=== PATIENT | female | born 1950 | race Caucasian/White ===

== ENCOUNTER → 2018-06-20 | Outpatient (CLI) | payer MEDICARE ==
--- NOTE | 2018-06-20 15:26 | Diagnostic Imaging Report ---
Thyroid ultrasound History: Thyrotoxicosis Comparison: None Findings: The thyroid appears heterogeneous with normal vascular flow. The right lobe measures 2.1 x 0.7 x 0.7 cm. The left lobe measures 1.5 x 0.5 x 0.8 cm. The isthmus measures 0.2 cm. Right Lobe: No cystic mass or discrete solid nodule identified. Left Lobe: No cystic mass or discrete solid nodule identified. Isthmus: No cystic mass or discrete solid nodule identified. Lymph Nodes: No cervical lymph nodes are identified. IMPRESSION: Heterogeneous appearance of the thyroid, a non-specific finding in the absence of hyperemia, but could be seen in thyroiditis. No evidence of focal nodule. Signed by: Dr. Eric Villarreal MD on 06/20/2018 3:23 PM
== END ==
LOC: US 13:52
PROVIDERS: ATTEND Internal Medicine
DX: E05.40 Thyrotoxicosis factitia without thyrotoxic crisis or storm (principal)
CPT/HCPCS: 76536

== ENCOUNTER → 2018-07-09 | Outpatient (CLI) | payer MEDICARE ==
[~2018-07-09] MED LIST: GADOBENATE DIMEGLUMINE 1 ML IV ONE; SODIUM CHLORIDE 0.9% 50ML 50 ML ONE
[2018-07-09 16:39] LABS: CREATININE, SERUM 1.11 mg/dL (0.57-1.11)
--- NOTE | 2018-07-11 15:32 | Diagnostic Imaging Report ---
MRI BRAIN WOW HISTORY: Abnormal thyroid function test COMPARISON: None. TECHNIQUE: Multiplanar, multisequence MRI of the brain (including diffusion-weighted imaging) and pituitary gland was performed before and after the administration of intravenous contrast. Dynamic coronal T1 weighted images through the sella were obtained. 9 mL of intravenous MultiHance were administered. DISCUSSION: Scalp/bone marrow: Unremarkable. Brain sulci: Appropriate for patient's age. Ventricles: Normal in size and configuration. No hydrocephalus. Extra-axial spaces: No masses or fluid collections. Sellar/Suprasellar region: The sella is preserved. The pituitary gland is normal in size and morphology. The posterior pituitary T1 bright spot is preserved. The pituitary stalk is not deviated. The optic chiasm is preserved. The cavernous sinuses are normal in size and enhance symmetrically. Meckel's caves are clear. The cavernous internal carotid artery flow voids are preserved. Parenchyma: Scattered T2/FLAIR hyperintense foci throughout the supratentorial white matter are likely chronic microvascular ischemic changes. Otherwise, no mass, hemorrhage, or acute vascular insults. Vessels: Normal flow voids in major arteries and veins. Craniocervical junction: Unremarkable. Incidental findings: There is nonspecific mild T2/FLAIR hyperintense mucosal thickening in the right maxillary sinus and right ethmoid air cells. IMPRESSION: 1. No sellar/suprasellar abnormalities. 2. No acute intracranial abnormalities. 3. Mild supratentorial chronic microvascular ischemic change. Signed by: Dr. Rylan Encarnacion M.D. on 07/11/2018 3:29 PM
== END ==
LOC: MRI 16:03
PROVIDERS: ATTEND Internal Medicine
DX: R94.6 Abnormal results of thyroid function studies (principal)
CPT/HCPCS: 36415; 70553; 82565; 84520

== ENCOUNTER 2020-04-08 11:17 | Emergency (ER) | payer MEDICARE ==
[~2020-04-08] VITALS: Ht 160 cm; Wt 51.7 kg
[2020-04-08] MEDS ORDERED: HYDROCODONE/APAP 7.5MG-325MG 1 EA TAB PO ONE (11:45)
--- NOTE | 2020-04-08 12:09 | Diagnostic Imaging Report ---
EXAMINATION: WRIST COMPLETE LEFT INDICATION: Trauma COMPARISON: None FINDINGS: Acute mildly displaced, mildly impacted fractures of the distal radius and ulna with intra-articular extension of fracture line. The ulnar fracture line extends proximally to the distal ulnar diaphysis. Associated overlying soft tissue swelling. IMPRESSION: Acute mildly displaced and impacted fractures of the distal radius and ulna with intra-articular extension and overlying soft tissue swelling. Signed by: Chele Valenzuela MD on 04/08/2020 12:05 PM
--- OUTSIDE RECORDS SUMMARY | 2020-04-08 12:23 | XMS REPORT | Clinical Summary ---
Author Author [facility] Organization [facility] Address Unknown Phone Unavailable Care Team Providers Care Risk Tech Name Role Phone Elmer Giles MD PCP Allergies Comments Active Allergy Reactions Severity Noted Date Don"t remember Sulfa (Sulfonamide 11/13/2017 Antibiotics) Medications End Date Status Medication Sig Dispensed Refills Start Date Active amIODarone (PACERONE) 200 Take 200 mg 0 MG tablet by mouth daily. Active levothyroxine (SYNTHROID, Take 75 mcg 0 LEVOXYL) 75 mcg tablet by mouth every morning. Active rivaroxaban (XARELTO) 20 Take 20 mg by 0 mg tablet mouth daily. Active atorvastatin (LIPITOR) 20 Take 20 mg by 0 MG tablet mouth daily. Default OP ins Active OLANZapine (ZYPREXA) 2.5 Take 5 mg by 0 MG tablet mouth nightly. Active LORAZepam (ATIVAN) 0.5 MG Take 0.5 mg 0 tablet by mouth daily. Active traZODone (DESYREL) 150 Take 150 mg 0 MG tablet by mouth nightly. Active Problems Not on file Social History Date Tobacco Use Types Packs/Day Years Used Current Every Day Smoker Smokeless Tobacco: Current User Drinks/Week oz/Week Comments Alcohol Use No Sex Assigned at Date Recorded Not on file Industry Job Start Date Occupation Not on file Not on file Not on file Travel End Travel History Travel Start No recent travel history available. 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
--- OUTSIDE RECORDS SUMMARY | 2020-04-08 12:23 | XMS REPORT | Continuity of Care Document ---
Author Author [facility] t Organization [facility] Address [address] [place] [address] Phone Unavailable Care Team Providers Care Music Manager Name Role Phone Poornima Giles MD PCP Papito TEJEDA Attphys Unavailable Neymar ANDREW Attphys Unavailable Payers Payer Name Policy Type Policy Number Effective Date Expiration Date S ource Problems This patient has no known problems. Allergies, Adverse Reactions, Alerts Allergy Name Allergy Type Status Severity Reaction(s) Onset Date Inacti ve Date Treating Clinician Comments Source Sulfa (Sulfonamide Antibiotics) Propensity to adverse reactions to drug Active 2017-11-13 00:00:00 Don"t remember H anita Morales Sulfa (Sulfonamide Antibiotics) DA Active U 2016-01-30 00 :00:00 [facility] Social History Social Habit Start Date Stop Date Quantity Comments Source Sex Assigned At Anthony Morales Alcohol intake 2018-05-26 00:00:00 2018-05-26 00:00:00 Current non-drinker of alcohol (finding) Tom Morales Smoking Status Start Date Stop Date Source Current every day smoker 2018-05-26 00:00:00 Anthony Morales Medications Ordered Medication Name Filled Medication Name Start Date Stop Da te Current Medication? Ordering Clinician Indication Dosage Frequency Signature (SIG) Comments Components Source amIODarone (PACERONE) 200 MG tablet 2018-04-16 10:46:54 Yes 200mg QD Take 200 mg by mouth daily. [facility] ths[facility] levothyroxine (SYNTHROID, LEVOXYL) 75 mcg tablet 2018-04-16 10:46:54 Yes 75ug QD Take 75 mcg by mouth every morning. [place] [facility] rivaroxaban (XARELTO) 20 mg tablet 2018-04-16 10:46:54 Yes 20mg QD Take 20 mg by mouth daily. [place] [facility] atorvastatin (LIPITOR) 20 MG tablet 2018-04-16 10:46:54 Yes 20mg QD Take 20 mg by mouth daily. Default OP ins Anthony stomeek [facility] OLANZapine (ZYPREXA) 2.5 MG tablet 2018-04-16 10:46:54 Yes 5mg QD Take 5 mg by mouth nightly. [place] [facility] LORAZepam (ATIVAN) 0.5 MG tablet 2018-04-16 10:46:54 Yes .5mg QD Take 0.5 mg by mouth daily. [place] [facility] traZODone (DESYREL) 150 MG tablet 2018-04-16 10:46:54 Yes 150mg QD Take 150 mg by mouth nightly. [place] [facility] mathis Procedures This patient has no known procedures. Plan of Care Planned Activity Planned Date Details Comments Source Future Scheduled Test 2020-05-19 00:00:00 INFLUENZA VACCINE [code = INFLUENZA VACCINE] [facility] Scheduled Test 2013 00:00:00 65+ PNEUMOCOCCAL V ACCINE (1 of 2 - PCV13) [code = 65+ PNEUMOCOCCAL VACCINE (1 of 2 - PCV13)] [facility] Future Scheduled Test 1998 00:00:00 BREAST CANCER SCRE ENING [code = BREAST CANCER SCREENING] [facility] Future Scheduled Test 1998 00:00:00 COLONOSCOPY SCREEN ING [code = COLONOSCOPY SCREENING] [facility] Future Scheduled Test 1998 00:00:00 SHINGLES VACCINES (#1) [code = SHINGLES VACCINES (#1)] [facility] Results Test Description Test Time Test Comments Results Result Comments Source WRIST COMPLETE LEFT 2020-04-08 12:04:00 [place] [address] Patient Name: HAYDE MCKEON MR #: [id number] : 1950 Age/Sex: 69/F Req #: [id number] [facility] Physician: Ordered by: EDIN TEJEDA MD Report #: [id number] Location: ER Room/Bed: Procedure: [id number] DX/WRIST COMPLETE LEFT Exam Date: 04/08/20 Exam Time: 1130 REPORT STATUS: Signed EXAMINATION: WRIST COMPLETE LEFT INDICATION: Trauma COMPARISON: None FINDINGS: Acute mildly displaced, mildly impacted fractures of the distal radius and ulna with intra-articular extension of fracture line. The ulnar fracture line extends proximally to the distal ulnar diaphysis. Associated overlying soft tissue swelling. IMPRESSION: Acute mildly displaced and impacted fractures of the distal radius and ulna with intra-articular extension and overlying soft tissue swelling. Signed by: Marcel Crespo MD on 04/08/2020 12:05 PM Dictated By: MARCEL CRESPO MD 120 Transcribed By: DONNA on 04/08/20 1205 COPY TO: EDIN TEJEDA MD COAGULATION TIME ACTIVATED 2018-11-03 11:20:00 Test Item COAGULATION TIME ACTIVATED (test code = ACT) 365 seconds 62.8-88.0 H COAGULATION TIME [id number] 11:20:00* Test Item Value Reference Range Interpretation Comments COAGULATION TIME ACTIVATED (test code = ACT) 363 seconds 62.8-88.0 H COAGULATION TIME [id number] 11:20:00* Test Item Value Reference Range Interpretation Comments COAGULATION TIME ACTIVATED (test code = ACT) 376 seconds 62.8-88.0 H COAGULATION TIME [id number] 11:20:00* Test Item Value Reference Range Interpretation Comments COAGULATION TIME ACTIVATED (test code = ACT) 410 seconds 62.8-88.0 H CBC W/AUTO [id number] 17:51:00* Test Item Value Reference Range Interpretation Comments WHITE BLOOD CELL (test code = WBC) 6.0 K/mm3 4.5-12.5 N RED BLOOD CELL (test code = RBC) 5.02 mill/mm3 3.7-5.2 N HEMOGLOBIN (test code = HGB) 13.3 gram/dL 11.5-15.5 N HEMATOCRIT (test code = HCT) 44.6 % 36.0-46.0 N MEAN CELL VOLUME (test code = MCV) 88.8 fL 80-98 N MEAN CELL HGB (test code = MCH) 26.5 picogram 27.0-33.0 L MEAN CELL HGB CONCETRATION (test code = MCHC) 29.8 gram/dL 33.0-36. 0 L RED CELL DISTRIBUTION WIDTH (test code = RDW) 15.4 % 11.6-16. 2 N RED CELL DISTRIBUTION WIDTH SD (test code = RDW-SD) 49.4 fL 37 .0-51.0 N PLATELET COUNT (test code = PLT) 148 K/mm3 150-450 L MEAN PLATELET VOLUME (test code = MPV) 11.2 fL 6.7-11.0 H NEUTROPHIL % (test code = NT%) 68.3 % 39.0-69.0 N IMMATURE GRANULOCYTE % (test code = IG%) 0.3 % 0.0-5.0 N LYMPHOCYTE % (test code = LY%) 21.6 % 25.0-55.0 L MONOCYTE % (test code = MO%) 8.0 % 0.0-10.0 N EOSINOPHIL % (test code = EO%) 1.5 % 0.0-5.0 N BASOPHIL % (test code = BA%) 0.3 % 0.0-1.0 N NUCLEATED RBC % (test code = NRBC%) 0.0 % 0-0 N NEUTROPHIL # (test code = NT#) 4.12 K/mm3 1.8-7.7 N IMMATURE GRANULOCYTE # (test code = IG#) 0.02 x10 3/uL 0-0.03 N LYMPHOCYTE # (test code = LY#) 1.30 K/mm3 1.0-5.0 N MONOCYTE # (test code = MO#) 0.48 K/mm3 0-0.8 N EOSINOPHIL # (test code = EO#) 0.09 K/mm3 0.0-0.5 N BASOPHIL # (test code = BA#) 0.02 K/mm3 0.0-0.2 N NUCLEATED RBC # (test code = NRBC#) 0.00 K/mm3 0.0-0.1 N MANUAL DIFF REQUIRED (test code = MDIFF) NO, ONLY SCAN NEEDED DIFFERENTIAL [id number] 17:51:00* Test Item Value Reference Range Interpretation Comments STAIN ACCEPTABILITY (test code = STN ACCEPTABLE) STAIN ACCEPTABLE POIKILOCYTOSIS (test code = POIK) 1+ PLATELET ESTIMATE (test code = PLTEST) DECREASED PLATELET MORPHOLOGY (test code = PLTMORPH) NORMAL BASIC METABOLIC [id number] 17:40:00* Test Item Value Reference Range Interpretation Comments SODIUM (test code = NA) 142 mmol/L 136-145 N POTASSIUM (test code = K) 3.5 mmol/L 3.5-5.1 N CHLORIDE (test code = CL) 107.0 mmol/L 98-107 N CARBON DIOXIDE (test code = CO2) 32.0 mmol/L 21-32 N ANION GAP (test code = GAP) 6.5 10-20 L GLUCOSE (test code = GLU) 80 mg/dL 74-106 N BLOOD UREA NITROGEN (test code = BUN) 14 mg/dL 7-18 N GLOMERULAR FILTRATION RATE (test code = GFR) 49 mL/min >=60 Estimated GFR by using Modified MDRD formula.Chronic kidney disease is defined as either kidney damageor GFR <60 mL/min/1.73 m2 for >3 months. CREATININE (test code = CREAT) 1.10 mg/dL 0.55-1.02 H Note change in reference range due to change in reagent. BUN/CREATININE RATIO (test code = BUN/CREA) 12.4 10-20 N CALCIUM (test code = CA) 9.0 mg/dL 8.5-10.1 N PROTHROMBIN [id number] 17:27:00* Test Item Value Reference Range Interpretation Comments PROTHROMBIN TIME PATIENT (test code = PTP) 15.0 seconds 9.0-14.0 H INTERNATIONAL NORMAL RATIO (test code = INR) 1.3 0.8-1.2 H The therapeutic range for oral anticoagulant therapy formost indications is an international normalized ratio (INR)of between 2.0 and 3.0. The recommended therapeutic INRrange for various clinical situations is listed below: Clinical Situation INR range Pulmonary e mbolism treatment (2.0-3.0)Venous thrombosis treatmentVenous thrombosis prophylaxis (high risk surgery)Prevention of systemic embolism from: Acute myocardial infarction Valvular heart disease Atrial fibrillation Mechanical prosthetic heart valves (2.5-3.5) THROMBOPLASTIN TIME [id number] 17:27:00* Test Item Value Reference Range Interpretation Comments THROMBOPLASTIN TIME PARTIAL (test code = PTT) 43.0 seconds 25.0-36. 5 H CBC W/AUTO [id number] 17:23:00* Test Item Value Reference Range Interpretation Comments WHITE BLOOD CELL (test code = WBC) 6.0 K/mm3 4.5-12.5 N RED BLOOD CELL (test code = RBC) 5.02 mill/mm3 3.7-5.2 N HEMOGLOBIN (test code = HGB) 13.3 gram/dL 11.5-15.5 N HEMATOCRIT (test code = HCT) 44.6 % 36.0-46.0 N MEAN CELL VOLUME (test code = MCV) 88.8 fL 80-98 N MEAN CELL HGB (test code = MCH) 26.5 picogram 27.0-33.0 L MEAN CELL HGB CONCETRATION (test code = MCHC) 29.8 gram/dL 33.0-36. 0 L RED CELL DISTRIBUTION WIDTH (test code = RDW) 15.4 % 11.6-16. 2 N RED CELL DISTRIBUTION WIDTH SD (test code = RDW-SD) 49.4 fL 37 .0-51.0 N PLATELET COUNT (test code = PLT) 148 K/mm3 150-450 L MEAN PLATELET VOLUME (test code = MPV) 11.2 fL 6.7-11.0 H NEUTROPHIL % (test code = NT%) 68.3 % 39.0-69.0 N IMMATURE GRANULOCYTE % (test code = IG%) 0.3 % 0.0-5.0 N LYMPHOCYTE % (test code = LY%) 21.6 % 25.0-55.0 L MONOCYTE % (test code = MO%) 8.0 % 0.0-10.0 N EOSINOPHIL % (test code = EO%) 1.5 % 0.0-5.0 N BASOPHIL % (test code = BA%) 0.3 % 0.0-1.0 N NUCLEATED RBC % (test code = NRBC%) 0.0 % 0-0 N NEUTROPHIL # (test code = NT#) 4.12 K/mm3 1.8-7.7 N IMMATURE GRANULOCYTE # (test code = IG#) 0.02 x10 3/uL 0-0.03 N LYMPHOCYTE # (test code = LY#) 1.30 K/mm3 1.0-5.0 N MONOCYTE # (test code = MO#) 0.48 K/mm3 0-0.8 N EOSINOPHIL # (test code = EO#) 0.09 K/mm3 0.0-0.5 N BASOPHIL # (test code = BA#) 0.02 K/mm3 0.0-0.2 N NUCLEATED RBC # (test code = NRBC#) 0.00 K/mm3 0.0-0.1 N MANUAL DIFF REQUIRED (test code = MDIFF) NO, ONLY SCAN NEEDED DIFFERENTIAL [id number] 17:23:00* Test Item Value Reference Range Interpretation Comments STAIN ACCEPTABILITY (test code = STN ACCEPTABLE) CABOT RINGS (test code = CAB) MORPHOLOGY COMMENT (test code = MOC) PLATELET ESTIMATE (test code = PLTEST) PLATELET MORPHOLOGY (test code = PLTMORPH) CBC W/AUTO [id number] 17:23:00* Test Item Value Reference Range Interpretation Comments WHITE BLOOD CELL (test code = WBC) 6.0 K/mm3 4.5-12.5 N RED BLOOD CELL (test code = RBC) 5.02 mill/mm3 3.7-5.2 N HEMOGLOBIN (test code = HGB) 13.3 gram/dL 11.5-15.5 N HEMATOCRIT (test code = HCT) 44.6 % 36.0-46.0 N MEAN CELL VOLUME (test code = MCV) 88.8 fL 80-98 N MEAN CELL HGB (test code = MCH) 26.5 picogram 27.0-33.0 L MEAN CELL HGB CONCETRATION (test code = MCHC) 29.8 gram/dL 33.0-36. 0 L RED CELL DISTRIBUTION WIDTH (test code = RDW) 15.4 % 11.6-16. 2 N RED CELL DISTRIBUTION WIDTH SD (test code = RDW-SD) 49.4 fL 37 .0-51.0 N PLATELET COUNT (test code = PLT) 148 K/mm3 150-450 L MEAN PLATELET VOLUME (test code = MPV) 11.2 fL 6.7-11.0 H NEUTROPHIL % (test code = NT%) 68.3 % 39.0-69.0 N IMMATURE GRANULOCYTE % (test code = IG%) 0.3 % 0.0-5.0 N LYMPHOCYTE % (test code = LY%) 21.6 % 25.0-55.0 L MONOCYTE % (test code = MO%) 8.0 % 0.0-10.0 N EOSINOPHIL % (test code = EO%) 1.5 % 0.0-5.0 N BASOPHIL % (test code = BA%) 0.3 % 0.0-1.0 N NUCLEATED RBC % (test code = NRBC%) 0.0 % 0-0 N NEUTROPHIL # (test code = NT#) 4.12 K/mm3 1.8-7.7 N IMMATURE GRANULOCYTE # (test code = IG#) 0.02 x10 3/uL 0-0.03 N LYMPHOCYTE # (test code = LY#) 1.30 K/mm3 1.0-5.0 N MONOCYTE # (test code = MO#) 0.48 K/mm3 0-0.8 N EOSINOPHIL # (test code = EO#) 0.09 K/mm3 0.0-0.5 N BASOPHIL # (test code = BA#) 0.02 K/mm3 0.0-0.2 N NUCLEATED RBC # (test code = NRBC#) 0.00 K/mm3 0.0-0.1 N MANUAL DIFF REQUIRED (test code = MDIFF) NO, ONLY SCAN NEEDED DIFFERENTIAL [id number] 17:23:00* Test Item Value Reference Range Interpretation Comments STAIN ACCEPTABILITY (test code = STN ACCEPTABLE) CABOT RINGS (test code = CAB) MORPHOLOGY COMMENT (test code = MOC) PLATELET ESTIMATE (test code = PLTEST) PLATELET MORPHOLOGY (test code = PLTMORPH) CBC W/AUTO [id number] 17:23:00* Test Item Value Reference Range Interpretation Comments WHITE BLOOD CELL (test code = WBC) 6.0 K/mm3 4.5-12.5 N RED BLOOD CELL (test code = RBC) 5.02 mill/mm3 3.7-5.2 N HEMOGLOBIN (test code = HGB) 13.3 gram/dL 11.5-15.5 N HEMATOCRIT (test code = HCT) 44.6 % 36.0-46.0 N MEAN CELL VOLUME (test code = MCV) 88.8 fL 80-98 N MEAN CELL HGB (test code = MCH) 26.5 picogram 27.0-33.0 L MEAN CELL HGB CONCETRATION (test code = MCHC) 29.8 gram/dL 33.0-36. 0 L RED CELL DISTRIBUTION WIDTH (test code = RDW) 15.4 % 11.6-16. 2 N RED CELL DISTRIBUTION WIDTH SD (test code = RDW-SD) 49.4 fL 37 .0-51.0 N PLATELET COUNT (test code = PLT) 148 K/mm3 150-450 L MEAN PLATELET VOLUME (test code = MPV) 11.2 fL 6.7-11.0 H NEUTROPHIL % (test code = NT%) 68.3 % 39.0-69.0 N IMMATURE GRANULOCYTE % (test code = IG%) 0.3 % 0.0-5.0 N LYMPHOCYTE % (test code = LY%) 21.6 % 25.0-55.0 L MONOCYTE % (test code = MO%) 8.0 % 0.0-10.0 N EOSINOPHIL % (test code = EO%) 1.5 % 0.0-5.0 N BASOPHIL % (test code = BA%) 0.3 % 0.0-1.0 N NUCLEATED RBC % (test code = NRBC%) 0.0 % 0-0 N NEUTROPHIL # (test code = NT#) 4.12 K/mm3 1.8-7.7 N IMMATURE GRANULOCYTE # (test code = IG#) 0.02 x10 3/uL 0-0.03 N LYMPHOCYTE # (test code = LY#) 1.30 K/mm3 1.0-5.0 N MONOCYTE # (test code = MO#) 0.48 K/mm3 0-0.8 N EOSINOPHIL # (test code = EO#) 0.09 K/mm3 0.0-0.5 N BASOPHIL # (test code = BA#) 0.02 K/mm3 0.0-0.2 N NUCLEATED RBC # (test code = NRBC#) 0.00 K/mm3 0.0-0.1 N MANUAL DIFF REQUIRED (test code = MDIFF) NO, ONLY SCAN NEEDED DIFFERENTIAL [id number] 17:23:00* Test Item Value Reference Range Interpretation Comments STAIN ACCEPTABILITY (test code = STN ACCEPTABLE) MORPHOLOGY COMMENT (test code = MOC) PLATELET ESTIMATE (test code = PLTEST) PLATELET MORPHOLOGY (test code = PLTMORPH) CBC W/AUTO [id number] 17:23:00* Test Item Value Reference Range Interpretation Comments WHITE BLOOD CELL (test code = WBC) 6.0 K/mm3 4.5-12.5 N RED BLOOD CELL (test code = RBC) 5.02 mill/mm3 3.7-5.2 N HEMOGLOBIN (test code = HGB) 13.3 gram/dL 11.5-15.5 N HEMATOCRIT (test code = HCT) 44.6 % 36.0-46.0 N MEAN CELL VOLUME (test code = MCV) 88.8 fL 80-98 N MEAN CELL HGB (test code = MCH) 26.5 picogram 27.0-33.0 L MEAN CELL HGB CONCETRATION (test code = MCHC) 29.8 gram/dL 33.0-36. 0 L RED CELL DISTRIBUTION WIDTH (test code = RDW) 15.4 % 11.6-16. 2 N RED CELL DISTRIBUTION WIDTH SD (test code = RDW-SD) 49.4 fL 37 .0-51.0 N PLATELET COUNT (test code = PLT) 148 K/mm3 150-450 L MEAN PLATELET VOLUME (test code = MPV) 11.2 fL 6.7-11.0 H NEUTROPHIL % (test code = NT%) 68.3 % 39.0-69.0 N IMMATURE GRANULOCYTE % (test code = IG%) 0.3 % 0.0-5.0 N LYMPHOCYTE % (test code = LY%) 21.6 % 25.0-55.0 L MONOCYTE % (test code = MO%) 8.0 % 0.0-10.0 N EOSINOPHIL % (test code = EO%) 1.5 % 0.0-5.0 N BASOPHIL % (test code = BA%) 0.3 % 0.0-1.0 N NUCLEATED RBC % (test code = NRBC%) 0.0 % 0-0 N NEUTROPHIL # (test code = NT#) 4.12 K/mm3 1.8-7.7 N IMMATURE GRANULOCYTE # (test code = IG#) 0.02 x10 3/uL 0-0.03 N LYMPHOCYTE # (test code = LY#) 1.30 K/mm3 1.0-5.0 N MONOCYTE # (test code = MO#) 0.48 K/mm3 0-0.8 N EOSINOPHIL # (test code = EO#) 0.09 K/mm3 0.0-0.5 N BASOPHIL # (test code = BA#) 0.02 K/mm3 0.0-0.2 N NUCLEATED RBC # (test code = NRBC#) 0.00 K/mm3 0.0-0.1 N MANUAL DIFF REQUIRED (test code = MDIFF) NO, ONLY SCAN NEEDED DIFFERENTIAL [id number] 17:23:00* Test Item Value Reference Range Interpretation Comments STAIN ACCEPTABILITY (test code = STN ACCEPTABLE) CABOT RINGS (test code = CAB) MORPHOLOGY COMMENT (test code = MOC) PLATELET ESTIMATE (test code = PLTEST) PLATELET MORPHOLOGY (test code = PLTMORPH) CBC W/AUTO [id number] 17:14:00* Test Item Value Reference Range Interpretation Comments WHITE BLOOD CELL (test code = WBC) K/mm3 4.5-12.5 RED BLOOD CELL (test code = RBC) mill/mm3 3.7-5.2 HEMOGLOBIN (test code = HGB) 13.3 gram/dL 11.5-15.5 N HEMATOCRIT (test code = HCT) 44.6 % 36.0-46.0 N MEAN CELL VOLUME (test code = MCV) fL 80-98 MEAN CELL HGB (test code = MCH) picogram 27.0-33.0 MEAN CELL HGB CONCETRATION (test code = MCHC) gram/dL 33.0-36. 0 RED CELL DISTRIBUTION WIDTH (test code = RDW) % 11.6-16. 2 RED CELL DISTRIBUTION WIDTH SD (test code = RDW-SD) fL 37 .0-51.0 PLATELET COUNT (test code = PLT) K/mm3 150-450 MEAN PLATELET VOLUME (test code = MPV) fL 6.7-11.0 NEUTROPHIL % (test code = NT%) % 39.0-69.0 IMMATURE GRANULOCYTE % (test code = IG%) % 0.0-5.0 LYMPHOCYTE % (test code = LY%) % 25.0-55.0 MONOCYTE % (test code = MO%) % 0.0-10.0 EOSINOPHIL % (test code = EO%) % 0.0-5.0 BASOPHIL % (test code = BA%) % 0.0-1.0 NEUTROPHIL # (test code = NT#) K/mm3 1.8-7.7 LYMPHOCYTE # (test code = LY#) K/mm3 1.0-5.0 MONOCYTE # (test code = MO#) K/mm3 0-0.8 EOSINOPHIL # (test code = EO#) K/mm3 0.0-0.5 BASOPHIL # (test code = BA#) K/mm3 0.0-0.2 - CT HEART W CN [id number] 16:15:00 Name: HAYDE MCKEON [facility] : 1950 Age/S: 68 / F [address] [facility] Unit #: [id number] Loc: [place] [address] Phys: Collin Aceves MD Acct: [id number] Dis Date: Status: REG CLI PHONE #: [phone] Exam Date: 10/28/2018 1151 FAX #: [phone] Reason: TYPLICAL EXAMS: CPT CODE: [id number] CT HEART W CN ART/GRAFTS [id number] REASON FOR EXAM: TYPLICAL EXAM ORDER DATE: 10/28/2018 11:19 AM Ordering M.D.: Collin Castellon MD PROCEDURE: - CT HEART W CN ART/GRAFTS COMPARISON: FINDINGS: Cardiac gated axial images of the heart were obtained with IV contrast. Dose modulation, iterative reconstruction, and/or weight based adjustment of the MA/KV was utilized to reduce the radiation dose to as low as reasonably achievable. Reconstructed 3- D angiogram of the pulmonary veins as well as intraluminal vessel analysis were also provided for interpretation The left atrium is minimally enlarged The right inferior pulmonary vein measured 1.8 x 2.4 cm The right superior pulmonary vein measured 2 x 2.2 cm The left inferior pulmonary vein measured 1.1 x 2.1 cm The left superior pulmonary vein measured 1.6 x 2 cm The left common pulmonary vein measured 1.8 x 3.6 cm IMPRESSION: Please see the included images for the orientation and dimension of the pulmonary veins Electronic ally Signed by Felisa Gooden on 10/28/2018 at 1615 Report ed and signed by: Smooth Gooden M.D. CC: Collin Aceves MD; Pedro Hendricks Technologist:Beverly Villarreal,RT(R),CT CTDI: DLP: Trnscb Date/Time: 10/28/2018 (5165) [email or web address] Orig Print D/T: S: 10/28/2018 (2833) CTDI: DLP: PAGE 1 Signed Report CREATININE W ESTIMATED [id number] 11:12:00* Test Item Value Reference Range Interpretation Comments BEDSIDE CREATININE (test code = CREATBED) mg/dL 0.7-1.3 N GLOMERULAR FILTRATION RATE POC (test code = GFRBED) 44 >6 0 LL CREATININE W ESTIMATED [id number] 11:12:00* Test Item Value Reference Range Interpretation Comments BEDSIDE CREATININE (test code = CREATBED) 1.21 mg/dL 0.7-1.3 N GLOMERULAR FILTRATION RATE POC (test code = GFRBED) 47 >6 0 LL Previously reported result: 44 Edited by: BRITTANIE on 10/28/18:363631 1112: GFRBED previously reported as: 44 *L MRI BRAIN [id number] 15:23:00 [place] [address] Patient Name: HAYDE MCKEON MR #: [id number] : 1950 Age/Sex: 67/F [facility] #: [id number] [facility] Physician: Ordered by: KAREN ANDREW M.D. Report #: [id number] Location: MRI Room/Bed: Procedure: [id number] MRI /MRI BRAIN WOW Exam Date: Exam Time: REPORT STATUS: Signed MRI BRAIN WOW HIST ORY: Abnormal thyroid function test COMPARISON: None. TECHNIQUE: Multiplanar, multisequence MRI of the brain (including diffusion-weighted imag ing) and pituitary gland was performed before and after the administration of intravenous contrast. Dynamic coronal T1 weighted images through the sella wer e obtained. 9 mL of intravenous MultiHance were administered. DISCUSSION: Scalp/bone marrow: Unremarkable. Brain sulci: Appropriate for patient's ag e. Ventricles: Normal in size and configuration. No hydrocephalus. Extra-ax ial spaces: No masses or fluid collections. Sellar/Suprasellar region: The sella is preserved. The pituitary gland is normal in size and morphology. The posterior pituitary T1 bright spot is preserved. The pituitary stalk is not deviated. The optic chiasm is preserved. The cavernous sinuses are n ormal in size and enhance symmetrically. Meckel's caves are clear. The cav ernous internal carotid artery flow voids are preserved. Parenchyma: Scat tered T2/FLAIR hyperintense foci throughout the supratentorial white matter ar e likely chronic microvascular ischemic changes. Otherwise, no mass, hemorrhag e, or acute vascular insults. Vessels: Normal flow voids in major arteries and veins. Craniocervical junction: Unremarkable. Incidental findings: There is nonspecific mild T2/FLAIR hyperintense mucosal thickening in the right max illary sinus and right ethmoid air cells. IMPRESSION: 1. No sellar/supra sellar abnormalities. 2. No acute intracranial abnormalities. 3. Mild supr atentorial chronic microvascular ischemic change. Signed by: Dr. Rylan Griffith M.D. on 07/11/2018 3:29 PM Dictated By: RYLAN BROWN MD Electr onically Signed By: RYLAN BROWN MD on 07/11/181528 Transcribed By: SLOANE Jimenez on 07/11/181528 COPY TO: KAREN ANDREW M.D. THYROID 2018-06-20 15:21:00 [place] [address] Patient Name: HAYDE MCKEON MR #: [id number] : 1950 Age/Sex: 67/F Req #: [id number] Adm Physician: Ordered by: KAREN ANDREW M.D. Report #: [id number] Location: US Room/Bed: Procedure: [id number] US/ US THYROID Exam Date: Exam Time: REPORT STATUS: Signed Thyroid ultrasound His tory: Thyrotoxicosis Comparison: None Findings: The thyroid appear s heterogeneous with normal vascular flow. The right lobe measures 2.1 x 0. 7 x 0.7 cm. The left lobe measures 1.5 x 0.5 x 0.8 cm. The isthmus measures 0.2 cm. Right Lobe: No cystic mass or discrete solid nodule identified. Left Lobe: No cystic mass or discrete solid nodule identified. Isthmus: No cystic mass or discrete solid nodule identified. Lymph Nodes: No cervical lymph nodes are identified. IMPRESSION: Heterogeneous appearance of the thyroid, a non-specific finding in the absence of hyperemia, but could be seen in thyroiditis. No evidence of focal nodule. Signed by: Dr. Eligio Francis MD on 06/20/2018 3:23 PM Dictated By: ELIGIO FRANCIS MD [id number] Transcribed By: DONNA on 06/20/18 1523 COPY TO: KAREN ANDREW M.D.
--- NOTE | 2020-04-08 12:26 | Diagnostic Imaging Report ---
CT BRAIN WO HISTORY: Fall COMPARISON: MRI brain 07/09/2018; report from head CT dated 12/15/2012 Technique: Noncontrast axial scans were obtained from skull base to the vertex. Coronal and sagittal reconstructions obtained from the axial data. One or more of the following dose reduction techniques were used: Automated exposure control, adjustment of the mA and/or kV according to patient size, and/or utilization of iterative reconstruction technique. DISCUSSION: Scalp/Skull: Unremarkable. Brain sulci: Mildly prominent. Ventricles: Compensatory dilatation. Extra-axial spaces: No masses or fluid collections. Carotid siphon calcifications are present. Parenchyma: Mild bilateral deep white matter hypodensity is likely chronic microvascular ischemic change. Otherwise, no masses, hemorrhage, or large vascular territory acute infarct. Dural sinuses: No abnormal densities. Sellar/Suprasellar region: Intact. Skull base: Intact. Incidental findings: Bilateral ocular lens replacement. IMPRESSION: 1. No acute intracranial abnormalities. 2. Mild supratentorial chronic microvascular ischemic change. Mild generalized cerebral volume loss. Signed by: Dr. Rylan Encarnacion M.D. on 04/08/2020 12:22 PM
--- OUTSIDE RECORDS SUMMARY | 2020-04-08 12:30 | XMS REPORT | Clinical Summary ---
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
--- OUTSIDE RECORDS SUMMARY | 2020-04-08 12:30 | XMS REPORT | Continuity of Care Document ---
Author Author [facility] t Organization [facility] Address 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 Tom robertson levothyroxine (SYNTHROID, LEVOXYL) 75 mcg tablet 2018-04-16 10:46:54 Yes 75ug QD Take 75 mcg by mouth every morning. Tom Morales rivaroxaban (XARELTO) 20 mg tablet 2018-04-16 10:46:54 Yes 20mg QD Take 20 mg by mouth daily. Santos Carmen atorvastatin (LIPITOR) 20 MG tablet 2018-04-16 10:46:54 Yes 20mg QD Take 20 mg by mouth daily. Default OP ins Anthony stomeek Morales OLANZapine (ZYPREXA) 2.5 MG tablet 2018-04-16 10:46:54 Yes 5mg QD Take 5 mg by mouth nightly. Santos Carmen LORAZepam (ATIVAN) 0.5 MG tablet 2018-04-16 10:46:54 Yes .5mg QD Take 0.5 mg by mouth daily. [place] Bea [address] traZODone (DESYREL) 150 MG tablet 2018-04-16 10:46:54 Yes 150mg QD Take 150 mg by mouth nightly. [place] Bea mathis Procedures This patient has no known procedures. Plan of Care Planned Activity Planned Date Details Comments Source Future Scheduled Test 2020-05-19 00:00:00 INFLUENZA VACCINE [code = INFLUENZA VACCINE] [facility] Scheduled Test 2013 00:00:00 65+ PNEUMOCOCCAL V ACCINE (1 of 2 - PCV13) [code = 65+ PNEUMOCOCCAL VACCINE (1 of 2 - PCV13)] [facility] Future Scheduled Test 1998 00:00:00 BREAST CANCER SCRE ENING [code = BREAST CANCER SCREENING] [facility] Future Scheduled Test 1998 00:00:00 COLONOSCOPY SCREEN ING [code = COLONOSCOPY SCREENING] [facility] Future Scheduled Test 1998 00:00:00 SHINGLES VACCINES (#1) [code = SHINGLES VACCINES (#1)] [facility] Results Test Description Test Time Test Comments Results Result Comments Source CT BRAIN WO 2020-04-08 12:19:00 [place] [address] Patient Name: HAYDE MCKEON MR #: [id number] : 1950 Age/Sex: 69/F Req #: [id number] [facility] Physician: Ordered by: EDIN TEJEDA MD Report #: [id number] Location: ER Room/Bed: Procedure: [id number] CT/CT BRAIN WO Exam Date: 04/08/20 Exam Time: 1210 REPORT STATUS: Signed CT BRAIN WO HISTORY: Fall COMPARISON: MRI brain 07/09/2018; report from head CT dated 12/15/2012 Technique: Noncontrast axial scans were obtained from skull base to the vertex. Coronal and sagittal reconstructions obtained from the axial data. One or more of the following dose reduction techniques were used: Automated exposure control, adjustment of the mA and/or kV according to patient size, and/or utilization of iterative reconstruction technique. DISCUSSION: Scalp/Skull: Unremarkable. Brain sulci: Mildly prominent. Ventricles: Compensatory dilatation. Extra-axial spaces: No masses or fluid collections. Carotid siphon calcifications are present. Parenchyma: Mild bilateral deep white matter hypodensity is likely chronic microvascular ischemic change. Otherwise, no masses, hemorrhage, or large vascular territory acute infarct. Dural sinuses: No abnormal densities. Sellar/Suprasellar region: Intact. Skull base: Intact. Incidental findings: Bilateral ocular lens replacement. IMPRESSION: 1. No acute intracranial abnormalities. 2. Mild supratentorial chronic microvascular ischemic change. Mild generalized cerebral volume loss. Signed by: Dr. Rylan Encarnacion M.D. on 04/08/2020 12:22 PM Dictated By: RYLAN ENCARNACION MD 1222 Transcribed By: DONNA on 04/08/20 1222 COPY TO: EDIN TEJEDA MD WRIST COMPLETE LEFT 2020-04-08 12:04:00 [facility] [address] [place] [address] Patient Name: HAYDE MCKEON MR #: [id number] : 1950 Age/Sex: 69/F Req #: [id number] Adm Physician: Ordered by: EDIN TEJEDA MD Report #: [id number] Location: ER Room/Bed: Procedure: [id number] DX/WRIST COMPLETE LEFT Exam Date: 04/08/20 Exam [...] 12:05 PM Dictated By: MARCEL CRESPO MD 1205 Transcribed By: DONNA on 04/08/20 1205 COPY TO: EDIN TEJEDA MD COAGULATION TIME ACTIVATED 2018-11-03 11:20:00 Test Item COAGULATION TIME ACTIVATED (test code = ACT) 365 seconds 62.8-88.0 H COAGULATION TIME [id number] 11:20:00* Test Item Value Reference Range Interpretation Comments COAGULATION TIME ACTIVATED (test code = ACT) 363 seconds 62.8-88.0 H COAGULATION TIME [id number] 11:20:00* Test Item Value Reference Range Interpretation Comments COAGULATION TIME ACTIVATED (test code = ACT) 376 seconds 62.8-88.0 H COAGULATION TIME [id number] 11:20:00* Test Item Value Reference Range Interpretation Comments COAGULATION TIME ACTIVATED (test code = ACT) 410 seconds 62.8-88.0 H CBC W/AUTO [id number] 17:51:00* Test Item Value Reference Range Interpretation [...] = MDIFF) NO, ONLY SCAN NEEDED DIFFERENTIAL [id number] 17:51:00* Test Item Value Reference Range Interpretation Comments STAIN ACCEPTABILITY (test code = STN ACCEPTABLE) STAIN ACCEPTABLE POIKILOCYTOSIS (test code = POIK) 1+ PLATELET ESTIMATE (test code = PLTEST) DECREASED PLATELET MORPHOLOGY (test code = PLTMORPH) NORMAL BASIC METABOLIC [id number] 17:40:00* Test Item Value Reference Range Interpretation [...] = CA) 9.0 mg/dL 8.5-10.1 N PROTHROMBIN [id number] 17:27:00* Test Item Value Reference Range Interpretation [...] Mechanical prosthetic heart valves (2.5-3.5) THROMBOPLASTIN TIME [id number] 17:27:00* Test Item Value Reference Range Interpretation Comments THROMBOPLASTIN TIME PARTIAL (test code = PTT) 43.0 seconds 25.0-36. 5 H CBC W/AUTO [id number] 17:23:00* Test Item Value Reference Range Interpretation [...] = MDIFF) NO, ONLY SCAN NEEDED DIFFERENTIAL [id number] 17:23:00* Test Item Value Reference Range Interpretation Comments STAIN ACCEPTABILITY (test code = STN ACCEPTABLE) CABOT RINGS (test code = CAB) MORPHOLOGY COMMENT (test code = MOC) PLATELET ESTIMATE (test code = PLTEST) PLATELET MORPHOLOGY (test code = PLTMORPH) CBC W/AUTO [id number] 17:23:00* Test Item Value Reference Range Interpretation [...] = MDIFF) NO, ONLY SCAN NEEDED DIFFERENTIAL [id number] 17:23:00* Test Item Value Reference Range Interpretation Comments STAIN ACCEPTABILITY (test code = STN ACCEPTABLE) CABOT RINGS (test code = CAB) MORPHOLOGY COMMENT (test code = MOC) PLATELET ESTIMATE (test code = PLTEST) PLATELET MORPHOLOGY (test code = PLTMORPH) CBC W/AUTO [id number] 17:23:00* Test Item Value Reference Range Interpretation [...] = MDIFF) NO, ONLY SCAN NEEDED DIFFERENTIAL [id number] 17:23:00* Test Item Value Reference Range Interpretation Comments STAIN ACCEPTABILITY (test code = STN ACCEPTABLE) MORPHOLOGY COMMENT (test code = MOC) PLATELET ESTIMATE (test code = PLTEST) PLATELET MORPHOLOGY (test code = PLTMORPH) CBC W/AUTO [id number] 17:23:00* Test Item Value Reference Range Interpretation [...] = MDIFF) NO, ONLY SCAN NEEDED DIFFERENTIAL [id number] 17:23:00* Test Item Value Reference Range Interpretation Comments STAIN ACCEPTABILITY (test code = STN ACCEPTABLE) CABOT RINGS (test code = CAB) MORPHOLOGY COMMENT (test code = MOC) PLATELET ESTIMATE (test code = PLTEST) PLATELET MORPHOLOGY (test code = PLTMORPH) CBC W/AUTO [id number] 17:14:00* Test Item Value Reference Range Interpretation [...] K/mm3 0.0-0.2 - CT HEART W CN [id number] 16:15:00 Name: HAYDE MCKEON [facility] : 1950 Age/S: 68 / [facility] [address] [facility]: [id number] Loc: [place] [address] Phys: Collin Aceves MD Acct: [id number] Dis Date: Status: REG CLI PHONE #: [phone] Exam Date: 10/28/2018 1151 FAX #: [phone] Reason: TYPLICAL EXAMS: CPT CODE: [id number] CT HEART W CN ART/GRAFTS [id number] REASON FOR EXAM: TYPLICAL EXAM ORDER DATE: [...] M.D. CC: Collin Aceves MD; Pedro Hendricks Technologist:RT Jennifer(R),CT CTDI: DLP: Trnscb Date/Time: 10/28/2018 (1615) tRICHIE Orig Print D/T: S: 10/28/2018 (1619) CTDI: DLP: PAGE 1 Signed Report CREATININE W ESTIMATED [id number] 11:12:00* Test Item Value Reference Range Interpretation Comments BEDSIDE CREATININE (test code = CREATBED) mg/dL 0.7-1.3 N GLOMERULAR FILTRATION RATE POC (test code = GFRBED) 44 >6 0 LL CREATININE W ESTIMATED [id number] 11:12:00* Test Item Value Reference Range Interpretation Comments BEDSIDE CREATININE (test code = CREATBED) 1.21 mg/dL 0.7-1.3 N GLOMERULAR FILTRATION RATE POC (test code = GFRBED) 47 >6 0 LL Previously reported result: 44 Edited by: BRITTANIE on 10/28/18:575618 1112: GFRBED previously reported as: 44 *L MRI BRAIN [id number] 15:23:[address] [place] [address] Patient Name: HAYDE MCKEON MR #: [id number] : 1950 Age/Sex: 67/F [facility] #: [id number] Req #: [id number] [facility] Physician: Ordered by: KAREN ANDREW M.D. Report #: [id number] Location: MRI Room/Bed: Procedure: [id number] MRI /MRI BRAIN WOW Exam Date: Exam [...] on 07/11/2018 3:29 PM Dictated By: RYLAN ENCARNACION MD Electr onically Signed By: RYLAN ENCARNACION MD on 07/11/181528 Transcribed By: SLOANE Jimenez on 07/11/181528 COPY TO: KAREN ANDREW M.D. THYROID 2018-06-20 15:21:00 [place] [address] Patient Name: HAYDE MCKEON MR #: [id number] : 1950 Age/Sex: 67/F Req #: [id number] Adm Physician: Ordered by: KAREN ANDREW M.D. Report #: [id number] Location: US Room/Bed: Procedure: [id number] US/ US THYROID Exam Date: Exam Time: [...]
--- NOTE | 2020-04-08 12:45 | NUR ---
ORTH MD DR. TIMMONS AT BEDSIDE TO SPLINT PATIENT'S LEFT WRIST. ORTHO MD RESET LEFT WRIST WITH MANUAL MANEUVER AND SPLINTED PATIENT'S WRIST WITH ORTHO GLASS. REPET XRAY OF WRIST ORDERED PER MD VERBAL ORDER. PATIENT TOLERATED PROCEDURE WELL. PT STATES SHE DOES HAVE PAIN AT THIS TIME. PATIENT PROVIDED WITH POST-SPLINT AND HAS BEEN INSTRUCTED TO FOLLOW-UP WITH ORTHO MD IN MD OFFICE. PATIENT VERBALIZED AN UNDERSTANDING.
--- NOTE | 2020-04-08 12:49 | Emergency Department Note ---
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 PT HAS VERY SWOLLEN LEFT WRIST AND IS UNABLE TO MOVE IT. PULSE INTACT, BRISK CAP REFILL. PT LSO HAS MULTIPLE ABRASIONS NOTED TO EXTREMITIES FROM HER FALL. PT DENIES HITTING HEAD OR LOC. Historian: Patient Arrival Mode: Car Target Setter Required: No Onset (how long ago): hour(s) (2) Location: LEFT WRIST Quality: PAIN Radiation: Reports non-radiation Severity: moderate Onset quality: sudden Timing of current episode: constant Progression: unchanged Chronicity: new Context: Reports trauma/injury Relieving factors: none Exacerbating factors: none Associated symptoms: Reports denies other symptoms Treatments prior to arrival: none Past Medical/Family History Physician Review I have reviewed the patient's past medical and family history. Any updates have been documented here. Past Medical History Recent Fever: No Clinical Suspicion of Infectio: No New/Unexplained Change in Ment: No Past Medical History: Hypertension, A-Fib Other Medical History: BIPOLAR/ANXIETY Other Surgery: CARDIAC ABLATION Social History Smoking Cessation: Never Smoker Counseling Performed: No Any Illegal Drug Use: No TB Exposure/Symptoms: No Physically hurt or threatened: No Family History Family history of heart diseas: No Other Any Pre-Existing Lines (PICC,: No Review of Systems Review of Systems Constitutional: Reports no symptoms EENTM: Reports no symptoms Cardiovascular: Reports no symptoms Respiratory: Reports no symptoms Gastrointestinal: Reports no symptoms Genitourinary: Reports no symptoms Musculoskeletal: Reports as per HPI Integumentary: Reports no symptoms Neurological: Reports no symptoms Psychological: Reports no symptoms Endocrine: Reports no symptoms Hematological/Lymphatic: Reports no symptoms Physical Exam Related Data Allergies: Coded Allergies: Sulfa (Sulfonamide Antibiotics) (Verified Allergy, Severe, 04/08/20) Triage Vital Signs Vital Signs Date Time Temp Pulse Resp B/P (MAP) Pulse Ox O2 Delivery O2 Flow Rate FiO2 04/08/20 11:28 98.5 83 16 144/78 99 Room Air Vital signs reviewed: Yes Physical Exam CONSTITUTIONAL Constitutional: Present well-developed, Present well-nourished HENT HENT: Present normocephalic, Present atraumatic, Present oropharynx clear/moist, Present nose normal HENT L/R: Present left ext ear normal, Present right ext ear normal EYES Eyes: Reports PERRL, Reports conjunctivae normal NECK Neck: Present ROM normal PULMONARY Pulmonary: Present effort normal, Present breath sounds normal CARDIOVASCULAR Cardiovascular: Present regular rhythm, Present heart sounds normal, Present capillary refill normal, Present normal rate GASTROINTESTINAL Abdominal: Present soft, Present nontender, Present bowel sounds normal GENITOURINARY Genitourinary: Present exam deferred SKIN Skin: Present warm, Present dry MUSCULOSKELETAL Musculoskeletal: Present deformity (LEFT DISTAL RADIUS/ULNA DEFORMITY C/W FX), Present tenderness, Present other (N/V INTACT) NEUROLOGICAL Neurological: Present alert, Present oriented x 3, Present no gross motor or sensory deficits PSYCHOLOGICAL Psychological: Present mood/affect normal, Present judgement normal Results Imaging Imaging results reviewed: Yes Assessment & Plan Medical Decision Making MDM XRAYS R/O FX, WILL ALSO CT BRAIN SINCE FALL ON XARELTO R/O CEREBRAL BLEED, SAH, EPIDURAL, SDH Reassessment Reassessment DR TIMMONS CAME AND REDUCED FX, SPLINTED, F/U WITH HIM, TYL #3, RTED PRN, RONALDO Assessment & Plan Final Impression: (1) Distal radial fracture (2) Ulna distal fracture Depart Disposition: HOME, SELF-CARE Last Vital Signs Date Time Temp Pulse Resp B/P (MAP) Pulse Ox O2 Delivery O2 Flow Rate FiO2 04/08/20 11:59 69 16 165/76 97 Room Air 04/08/20 11:28 98.5 Medications in the ED Acetaminophen/ Hydrocodone Bitart 1 ea NOW ONCE PO Last administered on at 11:57; Admin Dose 1 EA; Start 04/08/20 at 11:45; Stop 04/08/20 at 11:46; Status DC EDIN TEJEDA MD Apr 08, 2020 12:49
[2020-04-08 13:05] VITALS: BP 162/85
--- NOTE | 2020-04-08 13:41 | Diagnostic Imaging Report ---
Exam: Left wrist radiographs-4 views History: Post reduction Comparison: Left wrist radiographs performed earlier on the same day (04/08/2020) Findings: Evaluation is partially limited by overlying splint artifact. Mildly improved alignment of comminuted intra-articular distal radius fracture with mild residual dorsal displacement and impaction. Mildly improved alignment of comminuted intra-articular distal ulna fracture with mild residual dorsal impaction and dorsolateral displacement. No additional fractures visualized. No joint dislocation. Diffuse osseous demineralization. Mild diffuse soft tissue swelling adjacent to fractures. Impression: Status post reduction of comminuted intra-articular distal radius and ulna fractures with mild residual dorsal impaction and displacement. Signed by: Cristo Pisano MD on 04/08/2020 1:38 PM
--- NOTE | 2020-04-08 19:22 | NUR ---
ORTHOPEDICS 69 year old left hand dominant female presents to the ED after a mechanical fall with complaints of left wrist pain with deformity. No numbness, paresthesias or loss of distal motor function. Denies pain in any other extremity. PMdHx: Afit & HTN Allergies: Sulfa SurgHx: Right YSABEL, Nose Surgery, Neck Surgery FamHx: Non-contributory SocHx: Positive Tob, No EtOH, No Drugs AVSS AAOx3, NAD Left Upper Extremity No open lesions or sores Dinner fork deformity TTP of distal radius Motor: + AIN, PIN, Radial, Median, Ulnar, Sensation grossly intact Pulses+ Radial, good capillary refill Compartments soft Xrays: Left Displaced Distal Radius Fracture 69 year old with Left Distal Radius Fracture -Left wrist closed reduced with manipulation and splinted. Patient tolerated procedure well. Post reduction Xrays demonstrated improved alignment -Rest, Ice & Elevation -NWB -Follow up with me or Dr. Souza for operative intervention. Patient aware and amendable to plan. Karuna Castrejon DO
== END 2020-04-08 13:21 | disposition home or self-care (01) ==
LOC: ER 11:45
DX: S52.502A Unspecified fracture of the lower end of left radius, initial encounter for closed fracture (principal); S52.602A Unspecified fracture of lower end of left ulna, initial encounter for closed fracture; W01.0XXA Fall on same level from slipping, tripping and stumbling without subsequent striking against object, initial encounter; Y93.H2 Activity, gardening and landscaping; Y92.007 Garden or yard of unspecified non-institutional (private) residence as the place of occurrence of the external cause; I10 Essential (primary) hypertension; I48.91 Unspecified atrial fibrillation; F31.9 Bipolar disorder, unspecified; F41.9 Anxiety disorder, unspecified
CPT/HCPCS: 70450; 99283

== ENCOUNTER → 2020-06-29 | Outpatient (CLI) | payer MEDICARE | LOC: RAD 09:36 | PROVIDERS: ATTEND Internal Medicine | DX: I82.890 Acute embolism and thrombosis of other specified veins (principal) | CPT/HCPCS: 93970 ==

== ENCOUNTER 2020-11-23 16:58 | Inpatient (IN) | payer MEDICARE ==
[~2020-11-23] VITALS: Ht 160 cm; Wt 48.6 kg
[2020-11-23] MEDS ORDERED: ASPIRIN 81 MG CHEW TAB PO ONE (17:15)
[2020-11-23 17:30] LABS: BASOPHILS % 0.1 % (0.0-1.0); EOSINOPHILS # (AUTO) 0.1 (0.0-0.4); EOSINOPHILS % 1.2 % (0.0-6.0); HEMATOCRIT 23.3 % (34.2-44.1); LYMPHOCYTES # (AUTO) 0.5 (1.0-3.2); LYMPHOCYTES % 4.9 % (18.0-39.1); MEAN CORPUSCULAR HEMOGLOBIN 18.7 pg (28-32); MEAN CORPUSCULAR HGB CONC 27.5 g/dL (31-35); MEAN CORPUSCULAR VOLUME 68.1 fL (81-99); MONOCYTES # (AUTO) 0.9 (0.2-0.8); MONOCYTES % 9.3 % (4.4-11.3); NEUTROPHILS # (AUTO) 8.2 (2.1-6.9); PLATELET COUNT 369 x10e3/uL (140-360); RED BLOOD COUNT 3.42 x10e6/uL (3.6-5.1); RED CELL DISTRIBUTION WIDTH 19.9 % (11.7-14.4)
[2020-11-23 17:32] LABS: HEMOGLOBIN 6.4 g/dL (12.0-16.0)
[2020-11-23 17:44] LABS: ALANINE AMINOTRANSFERASE 30 IU/L (0-55); ALBUMIN 2.8 g/dL (3.5-5.0); ALBUMIN/GLOBULIN RATIO 0.8 (0.8-2.0); ALKALINE PHOSPHATASE 111 IU/L (40-150); ANION GAP 17.2 mmol/L (8-16); BLOOD UREA NITROGEN 15 mg/dL (7-26); BUN/CREATININE RATIO 19 (6-25); CALCIUM 8.5 mg/dL (8.4-10.2); CARBON DIOXIDE 22 mmol/L (22-29); CHLORIDE 99 mmol/L (98-107); CREATINE KINASE 53 IU/L (29-168); CREATININE, SERUM 0.81 mg/dL (0.57-1.11); EST GLOMERULAR FILTRATION RATE > 60 ML/MIN (60-); GLUCOSE 100 mg/dL (74-118); POTASSIUM 4.2 mmol/L (3.5-5.1); SODIUM 134 mmol/L (136-145)
[2020-11-23 18:21] LABS: INR 1.03; PROTHROMBIN TIME 14.1 seconds (11.9-14.5)
[2020-11-23 18:22] LABS: PARTIAL THROMBOPLASTIN TIME 35.4 seconds (23.8-35.5)
[2020-11-23 19:14] LABS: FERRITIN 37.8 ng/mL (4.63-204.00)
[2020-11-23] MEDS ORDERED: FUROSEMIDE INJ 10 MG/ML 4 ML VIAL IV ONE (19:30)
[2020-11-23] MEDS ORDERED: FUROSEMIDE INJ 10 MG/ML 2 ML VIAL IV SCH (19:30)
[2020-11-23] MEDS ORDERED: SODIUM CHLORIDE 0.9% 250ML 250 ML IV ONE (19:30)
[2020-11-23] MEDS ORDERED: LOPRESSOR25 MG PO (20:26)
[2020-11-23] MEDS ORDERED: ESCITALOPRAM OX20 MG PO (20:26)
[2020-11-23] MEDS ORDERED: IRBESARTAN75 MG PO (20:26)
[2020-11-23] MEDS ORDERED: CLONAZEPAM0.5 MG PO (20:26)
[2020-11-23] MEDS ORDERED: XARELTO15 MG PO (20:26)
[2020-11-23] MEDS ORDERED: QUETIAPINE FUM200 MG PO (20:26)
[2020-11-23] MEDS ORDERED: FUROSEMIDE20 MG PO (20:26)
[2020-11-23] MEDS ORDERED: ATORVASTATIN CA20 MG PO (20:26)
[2020-11-23] MEDS ORDERED: LEVOTHYROXINE150 MCG PO (20:26)
[2020-11-23] MEDS ORDERED: AMIODARONE HCL200 MG PO (20:26)
[2020-11-23 20:45] VITALS: BP 147/70
[2020-11-23 22:35] VITALS: BP 147/70
[2020-11-23 22:45] VITALS: BP 147/70
[2020-11-24] VITALS (8 sets, daily range): BP systolic 99–147; BP diastolic 51–70
[2020-11-24] MEDS ORDERED: SODIUM CHLORIDE 0.9% 250ML 250 ML ONE (01:56)
[2020-11-24 07:12] LABS: BASOPHILS % 0.4 % (0.0-1.0); EOSINOPHILS # (AUTO) 0.3 (0.0-0.4); EOSINOPHILS % 3.6 % (0.0-6.0); HEMATOCRIT 34.1 % (34.2-44.1); HEMOGLOBIN 10.5 g/dL (12.0-16.0); LYMPHOCYTES # (AUTO) 0.8 (1.0-3.2); LYMPHOCYTES % 9.6 % (18.0-39.1); MEAN CORPUSCULAR HEMOGLOBIN 22.4 pg (28-32); MEAN CORPUSCULAR HGB CONC 30.8 g/dL (31-35); MEAN CORPUSCULAR VOLUME 72.7 fL (81-99); MONOCYTES % 12.9 % (4.4-11.3); NEUTROPHILS # (AUTO) 5.9 (2.1-6.9); NEUTROPHILS % 73.1 % (38.7-80.0); PLATELET COUNT 324 x10e3/uL (140-360); RED BLOOD COUNT 4.69 x10e6/uL (3.6-5.1); RED CELL DISTRIBUTION WIDTH 21.7 % (11.7-14.4)
[2020-11-24 07:54] LABS: ALANINE AMINOTRANSFERASE 26 IU/L (0-55); ALBUMIN 2.8 g/dL (3.5-5.0); ALBUMIN/GLOBULIN RATIO 0.8 (0.8-2.0); ALKALINE PHOSPHATASE 112 IU/L (40-150); ANION GAP 15.3 mmol/L (8-16); BLOOD UREA NITROGEN 13 mg/dL (7-26); BUN/CREATININE RATIO 15 (6-25); CALCIUM 8.3 mg/dL (8.4-10.2); CARBON DIOXIDE 27 mmol/L (22-29); CHLORIDE 99 mmol/L (98-107); CREATININE, SERUM 0.89 mg/dL (0.57-1.11); EST GLOMERULAR FILTRATION RATE > 60 ML/MIN (60-); GLUCOSE 92 mg/dL (74-118); POTASSIUM 3.3 mmol/L (3.5-5.1); SODIUM 138 mmol/L (136-145)
[2020-11-24 08:13] LABS: CREATINE KINASE MB 1.3 ng/mL (0-5.0)
[2020-11-24] MEDS ORDERED: CLONAZEPAM 0.5 MG TAB PO PRN (08:15)
[2020-11-24] MEDS ORDERED: ACETAMINOPHEN 325 MG TAB PO PRN (08:15)
[2020-11-24] MEDS ORDERED: POTASSIUM CHLORIDE 20 MEQ TAB CR PO SCH (09:00)
[2020-11-24] MEDS ORDERED: RIVAROXABAN 15 MG TABLET PO SCH (09:00)
[2020-11-24] MEDS ORDERED: FUROSEMIDE INJ 10 MG/ML 4 ML VIAL IV SCH (09:00)
[2020-11-24] MEDS: METOPROLOL TARTRATE 25 MG TAB PO SCH (09:40)
[2020-11-24] MEDS: IRBESARTAN 150 MG TAB PO SCH (09:40)
[2020-11-24] MEDS: ATORVASTATIN 20 MG TAB PO SCH (09:40)
[2020-11-24] MEDS: AMIODARONE HCL 200 MG TAB PO SCH (09:40)
[2020-11-24] MEDS: ESCITALOPRAM OXALATE 10 MG TAB PO SCH (09:41)
[2020-11-24] MEDS: QUETIAPINE FUMARATE 100 MG TAB PO SCH (09:41)
[2020-11-24 14:56] LABS: CREATINE KINASE MB 0.9 ng/mL (0-5.0)
[2020-11-24 16:31] LABS: ANION GAP 10.4 mmol/L (8-16); CALCIUM 7.8 mg/dL (8.4-10.2); CREATININE, SERUM 0.92 mg/dL (0.57-1.11); POTASSIUM 3.4 mmol/L (3.5-5.1)
[2020-11-25] VITALS (8 sets, daily range): BP systolic 92–139; BP diastolic 50–97
[2020-11-25] MEDS ORDERED: CYANOCOBALAMIN INJ 1,000 MCG/ML VIAL IM STA (00:45)
[2020-11-25] MEDS ORDERED: BISACODYL 5 MG TAB EC PO ONE ×3 (01:00→23:30)
[2020-11-25] MEDS: LEVOTHYROXINE SODIUM 75 MCG TAB PO SCH (05:45)
[2020-11-25 06:01] LABS: BASOPHILS % 0.4 % (0.0-1.0); EOSINOPHILS # (AUTO) 0.3 (0.0-0.4); EOSINOPHILS % 3.6 % (0.0-6.0); HEMOGLOBIN 9.4 g/dL (12.0-16.0); LYMPHOCYTES % 10.9 % (18.0-39.1); MEAN CORPUSCULAR HEMOGLOBIN 22.3 pg (28-32); MEAN CORPUSCULAR HGB CONC 30.3 g/dL (31-35); MEAN CORPUSCULAR VOLUME 73.5 fL (81-99); MONOCYTES % 11.3 % (4.4-11.3); NEUTROPHILS # (AUTO) 6.7 (2.1-6.9); NEUTROPHILS % 73.4 % (38.7-80.0); PLATELET COUNT 263 x10e3/uL (140-360); RED BLOOD COUNT 4.22 x10e6/uL (3.6-5.1); RED CELL DISTRIBUTION WIDTH 21.4 % (11.7-14.4)
[2020-11-25 06:13] LABS: ALANINE AMINOTRANSFERASE 19 IU/L (0-55); ALBUMIN 2.7 g/dL (3.5-5.0); ALBUMIN/GLOBULIN RATIO 0.9 (0.8-2.0); ALKALINE PHOSPHATASE 96 IU/L (40-150); ANION GAP 14.5 mmol/L (8-16); BLOOD UREA NITROGEN 14 mg/dL (7-26); BUN/CREATININE RATIO 16 (6-25); CARBON DIOXIDE 27 mmol/L (22-29); CHLORIDE 97 mmol/L (98-107); CHOL/HDL RATIO 3.6 (3.0-3.6); CHOLESTEROL 123 MD/DL (0-199); CREATININE, SERUM 0.85 mg/dL (0.57-1.11); EST GLOMERULAR FILTRATION RATE > 60 ML/MIN (60-); GLUCOSE 76 mg/dL (74-118); HDL CHOLESTEROL 34 MG/DL (40-60); LDL CHOLESTEROL 61 MG/DL (60-130); POTASSIUM 3.5 mmol/L (3.5-5.1); SODIUM 135 mmol/L (136-145); TRIGLYCERIDES 142 MG/DL (0-149)
[2020-11-25 06:27] LABS: THYROID STIMULATING HORMONE 14.969 uIU/mL (0.350-4.940)
[2020-11-25] MEDS: IRBESARTAN 150 MG TAB PO SCH (09:12)
[2020-11-25] MEDS: ESCITALOPRAM OXALATE 10 MG TAB PO SCH (09:13)
[2020-11-25] MEDS: AMIODARONE HCL 200 MG TAB PO SCH (09:13)
[2020-11-25] MEDS: ATORVASTATIN 20 MG TAB PO SCH (09:13)
[2020-11-25] MEDS: QUETIAPINE FUMARATE 100 MG TAB PO SCH (09:14)
[2020-11-25] MEDS: METOPROLOL TARTRATE 25 MG TAB PO SCH (09:14)
[2020-11-25] MEDS: CYANOCOBALAMIN INJ 1,000 MCG/ML VIAL IM SCH (09:18)
[2020-11-25] MEDS ORDERED: GLUCAGON FOR INJ 1 MG VIAL ONE (13:46)
[2020-11-25] MEDS ORDERED: HYOSCYAMINE SULFATE 0.5 MG/ML INJ ONE (13:46)
[2020-11-25] MEDS ORDERED: PROPOFOL IV EMULSION 10 MG/ML 20 ML VIAL ONE (13:46)
[2020-11-26] VITALS (7 sets, daily range): BP systolic 91–110; BP diastolic 48–59
[2020-11-26] MEDS ORDERED: BISACODYL 5 MG TAB EC PO ONE
[2020-11-26] MEDS: ONDANSETRON HCL INJ 2MG/ML 2ML 2 MG/ML VIAL IV PRN (01:40)
[2020-11-26] MEDS ORDERED: CITRATE OF MAGNESIA 300ML BOTTLE PO ONE ×2 (05:00→07:00)
[2020-11-26] MEDS: LEVOTHYROXINE SODIUM 75 MCG TAB PO SCH (05:08)
[2020-11-26 06:35] LABS: ANION GAP 15.1 mmol/L (8-16); CALCIUM 8.5 mg/dL (8.4-10.2); CREATININE, SERUM 1.11 mg/dL (0.57-1.11); POTASSIUM 4.1 mmol/L (3.5-5.1)
[2020-11-26] MEDS ORDERED: MIDAZOLAM HCL 2 MG/2 ML VIAL ONE (12:58)
[2020-11-26] MEDS ORDERED: EPHEDRINE SULFATE INJ 50 MG/ML VIAL ONE (13:46)
[2020-11-26] MEDS: AMIODARONE HCL 200 MG TAB PO SCH (15:00)
[2020-11-26] MEDS: PANTOPRAZOLE 40 MG 10ML VIAL IV SCH ×2 (15:00→21:31)
[2020-11-26] MEDS: ESCITALOPRAM OXALATE 10 MG TAB PO SCH (15:00)
[2020-11-26] MEDS: METOPROLOL TARTRATE 25 MG TAB PO SCH (15:00)
[2020-11-26] MEDS: IRBESARTAN 150 MG TAB PO SCH (15:00)
[2020-11-26] MEDS: CYANOCOBALAMIN INJ 1,000 MCG/ML VIAL IM SCH (15:00)
[2020-11-26] MEDS: QUETIAPINE FUMARATE 100 MG TAB PO SCH (15:00)
[2020-11-26] MEDS ORDERED: SODIUM CHLORIDE 0.9% 250ML 250 ML ONE (15:01)
[2020-11-26] MEDS: IRON SUCROSE 100 MG in SODIUM CHLORIDE 0.9% 100 ML 100 ML IV SCH (16:02)
[2020-11-26] MEDS: ATORVASTATIN 20 MG TAB PO SCH (20:36)
[2020-11-27] VITALS (8 sets, daily range): BP systolic 91–118; BP diastolic 50–58
[2020-11-27] MEDS: LEVOTHYROXINE SODIUM 75 MCG TAB PO SCH (06:04)
[2020-11-27 06:59] LABS: BASOPHILS % 0.1 % (0.0-1.0); EOSINOPHILS # (AUTO) 0.3 (0.0-0.4); EOSINOPHILS % 4.1 % (0.0-6.0); HEMATOCRIT 29.9 % (34.2-44.1); HEMOGLOBIN 8.7 g/dL (12.0-16.0); LYMPHOCYTES # (AUTO) 0.9 (1.0-3.2); LYMPHOCYTES % 12.7 % (18.0-39.1); MEAN CORPUSCULAR HEMOGLOBIN 22.4 pg (28-32); MEAN CORPUSCULAR HGB CONC 29.1 g/dL (31-35); MEAN CORPUSCULAR VOLUME 77.1 fL (81-99); MONOCYTES # (AUTO) 0.7 (0.2-0.8); MONOCYTES % 9.9 % (4.4-11.3); NEUTROPHILS # (AUTO) 4.9 (2.1-6.9); NEUTROPHILS % 72.9 % (38.7-80.0); PLATELET COUNT 254 x10e3/uL (140-360); RED BLOOD COUNT 3.88 x10e6/uL (3.6-5.1); RED CELL DISTRIBUTION WIDTH 22.8 % (11.7-14.4)
[2020-11-27 07:41] LABS: ALBUMIN 2.5 g/dL (3.5-5.0); ANION GAP 10.7 mmol/L (8-16); CALCIUM 7.9 mg/dL (8.4-10.2); CREATININE, SERUM 1.31 mg/dL (0.57-1.11); POTASSIUM 3.7 mmol/L (3.5-5.1)
[2020-11-27] MEDS: IRBESARTAN 150 MG TAB PO SCH (08:35)
[2020-11-27] MEDS: CYANOCOBALAMIN INJ 1,000 MCG/ML VIAL IM SCH (08:35)
[2020-11-27] MEDS: AMIODARONE HCL 200 MG TAB PO SCH (08:36)
[2020-11-27] MEDS: METOPROLOL TARTRATE 25 MG TAB PO SCH (08:36)
[2020-11-27] MEDS: PANTOPRAZOLE 40 MG 10ML VIAL IV SCH ×2 (08:37→21:54)
[2020-11-27] MEDS: QUETIAPINE FUMARATE 100 MG TAB PO SCH (08:37)
[2020-11-27] MEDS: ESCITALOPRAM OXALATE 10 MG TAB PO SCH (08:37)
[2020-11-27] MEDS: IRON SUCROSE 100 MG in SODIUM CHLORIDE 0.9% 100 ML 100 ML IV SCH (11:04)
[2020-11-27] MEDS: SODIUM CHLORIDE 0.9% 1000ML 1,000 ML IV SCH ×2 (11:04→18:41)
[2020-11-27] MEDS: ATORVASTATIN 20 MG TAB PO SCH (21:54)
[2020-11-27] MEDS: ONDANSETRON HCL INJ 2MG/ML 2ML 2 MG/ML VIAL IV PRN (23:26)
[2020-11-28 00:42] VITALS: BP 135/58
[2020-11-28] MEDS: LEVOTHYROXINE SODIUM 75 MCG TAB PO SCH (05:33)
[2020-11-28 05:50] LABS: BASOPHILS % 0.4 % (0.0-1.0); EOSINOPHILS # (AUTO) 0.3 (0.0-0.4); HEMATOCRIT 31.4 % (34.2-44.1); HEMOGLOBIN 9.2 g/dL (12.0-16.0); LYMPHOCYTES # (AUTO) 0.8 (1.0-3.2); LYMPHOCYTES % 12.4 % (18.0-39.1); MEAN CORPUSCULAR HEMOGLOBIN 22.6 pg (28-32); MEAN CORPUSCULAR HGB CONC 29.3 g/dL (31-35); MEAN CORPUSCULAR VOLUME 77.1 fL (81-99); MONOCYTES # (AUTO) 0.6 (0.2-0.8); MONOCYTES % 9.4 % (4.4-11.3); NEUTROPHILS % 73.5 % (38.7-80.0); PLATELET COUNT 250 x10e3/uL (140-360); RED BLOOD COUNT 4.07 x10e6/uL (3.6-5.1); RED CELL DISTRIBUTION WIDTH 23.9 % (11.7-14.4)
[2020-11-28 06:13] VITALS: BP 136/72
[2020-11-28 06:13] LABS: ALANINE AMINOTRANSFERASE 12 IU/L (0-55); ALBUMIN 2.7 g/dL (3.5-5.0); ALKALINE PHOSPHATASE 88 IU/L (40-150); ANION GAP 11.5 mmol/L (8-16); BLOOD UREA NITROGEN 8 mg/dL (7-26); BUN/CREATININE RATIO 9 (6-25); CALCIUM 7.9 mg/dL (8.4-10.2); CARBON DIOXIDE 24 mmol/L (22-29); CHLORIDE 105 mmol/L (98-107); CREATININE, SERUM 0.88 mg/dL (0.57-1.11); EST GLOMERULAR FILTRATION RATE > 60 ML/MIN (60-); GLUCOSE 82 mg/dL (74-118); POTASSIUM 3.5 mmol/L (3.5-5.1); SODIUM 137 mmol/L (136-145)
[2020-11-28] MEDS: SODIUM CHLORIDE 0.9% 1000ML 1,000 ML IV SCH (06:22)
[2020-11-28 08:18] VITALS: BP 130/73
[2020-11-28] MEDS: ESCITALOPRAM OXALATE 10 MG TAB PO SCH (08:20)
[2020-11-28] MEDS: QUETIAPINE FUMARATE 100 MG TAB PO SCH (08:20)
[2020-11-28] MEDS: CYANOCOBALAMIN INJ 1,000 MCG/ML VIAL IM SCH (08:20)
[2020-11-28] MEDS: METOPROLOL TARTRATE 25 MG TAB PO SCH (08:20)
[2020-11-28 08:36] VITALS: BP 130/73
[2020-11-28] MEDS ORDERED: AMIODARONE HCL 200 MG TAB PO SCH (09:00)
[2020-11-28] MEDS: IRON SUCROSE 100 MG in SODIUM CHLORIDE 0.9% 100 ML 100 ML IV SCH (09:09)
[2020-11-28] MEDS ORDERED: ONDANSETRON HCL 4 MG ORAL DISINTEGRATING TAB PO PRN (09:15)
[2020-11-28] MEDS ORDERED: PANTOPRAZOLE SO40 MG PO (09:15)
[2020-11-28] MEDS ORDERED: PROTONIX40 MG PO (09:15)
[2020-11-28] MEDS ORDERED: CLARITIN10 MG PO (09:16)
[2020-11-28] MEDS ORDERED: DOXYCYCLINE HY100 M4 PO (09:17)
[2020-11-28] MEDS ORDERED: FERROUS SULFAT325 M1 PO (09:18)
[2020-11-28 11:43] VITALS: BP 117/62
[2020-11-29] MEDS ORDERED: RIVAROXABAN 15 MG TABLET PO SCH (09:00)
== END 2020-11-28 12:04 | disposition home or self-care (01) | DRG 291 ==
LOC: ER 17:08 → ERHOLD 19:32 → MED/SURG 20:42
PROVIDERS: ADMIT Internal Medicine; ATTEND Internal Medicine
PROC: 30233N1 Transfusion of Nonautologous Red Blood Cells into Peripheral Vein, Percutaneous Approach (ICD-10-PCS; principal; 2020-11-23)
PROC: 0DB68ZX Excision of Stomach, Via Natural or Artificial Opening Endoscopic, Diagnostic (ICD-10-PCS; 2020-11-26)
PROC: 0DBK8ZX Excision of Ascending Colon, Via Natural or Artificial Opening Endoscopic, Diagnostic (ICD-10-PCS; 2020-11-26)
PROC: 0DBL8ZX Excision of Transverse Colon, Via Natural or Artificial Opening Endoscopic, Diagnostic (ICD-10-PCS; 2020-11-26)
PROC: 0D718ZZ Dilation of Upper Esophagus, Via Natural or Artificial Opening Endoscopic (ICD-10-PCS; 2020-11-26 16:00)
PROC: 0DB98ZX Excision of Duodenum, Via Natural or Artificial Opening Endoscopic, Diagnostic (ICD-10-PCS; 2020-11-26 16:00)
DX: I11.0 Hypertensive heart disease with heart failure (principal); E43 Unspecified severe protein-calorie malnutrition; K29.71 Gastritis, unspecified, with bleeding; I24.8 Other forms of acute ischemic heart disease; Z68.1 Body mass index [BMI] 19.9 or less, adult; I50.33 Acute on chronic diastolic (congestive) heart failure; I48.0 Paroxysmal atrial fibrillation; F31.9 Bipolar disorder, unspecified; E78.00 Pure hypercholesterolemia, unspecified; Z87.891 Personal history of nicotine dependence; Z88.2 Allergy status to sulfonamides; D50.0 Iron deficiency anemia secondary to blood loss (chronic); Z79.01 Long term (current) use of anticoagulants; E03.9 Hypothyroidism, unspecified; K22.2 Esophageal obstruction; N28.9 Disorder of kidney and ureter, unspecified; K63.5 Polyp of colon; K64.8 Other hemorrhoids; D51.1 Vitamin B12 deficiency anemia due to selective vitamin B12 malabsorption with proteinuria; Z20.822 Contact with and (suspected) exposure to COVID-19
CPT/HCPCS: 36415; 43239; 43450; 45380; 70450; 71045; 80048; 80053; 80061; 82270; 82550; 82553; 82607; 82728; 82746; 83540; 83735; 83880; 84443; 84466; 84484; 85025; 85045; 85610; 85730; 86850; 86900; 86920; 88305; 88312; 93005; 93306; 93970; 99285; J1610; J1756; J1940; J1980; J2250; J2405; J3420; J7030; J7050; P9016; U0002

== ENCOUNTER → 2021-01-31 | Outpatient (CLI) | payer MEDICARE ==
[~2021-01-31] MED LIST changes: +AMIODARONE HCL200 MG PO; +ATORVASTATIN CA20 MG PO; +CLARITIN10 MG PO; +CLONAZEPAM0.5 MG PO; +DOXYCYCLINE HY100 M4 PO; +ESCITALOPRAM OX20 MG PO; +FERROUS SULFAT325 M1 PO; +FUROSEMIDE20 MG PO; -GADOBENATE DIMEGLUMINE 1 ML IV ONE; +IRBESARTAN75 MG PO; +LEVOTHYROXINE150 MCG PO; +LOPRESSOR25 MG PO; +PANTOPRAZOLE SO40 MG PO; +PROTONIX40 MG PO; +QUETIAPINE FUM200 MG PO; -SODIUM CHLORIDE 0.9% 50ML 50 ML ONE; +XARELTO15 MG PO
== END ==
LOC: DX 08:51
PROVIDERS: ATTEND Internal Medicine Gastroenterology
DX: D62 Acute posthemorrhagic anemia (principal); Z20.822 Contact with and (suspected) exposure to COVID-19
CPT/HCPCS: 74250; U0002

== ENCOUNTER 2021-02-28 16:23 | Emergency (ER) | payer MEDICARE ==
[~2021-02-28] VITALS: Ht 160 cm; Wt 48.5 kg
[2021-02-28] MEDS ORDERED: CEPHALEXIN500 MG PO (16:42)
[2021-02-28] MEDS ORDERED: CLINDAMYCIN HC300 MG PO (16:42)
[2021-03-03] MEDS ORDERED: ASPIRIN81 MG PO (12:06)
== END 2021-02-28 17:06 | disposition home or self-care (01) ==
LOC: ER 16:35
DX: L02.811 Cutaneous abscess of head [any part, except face] (principal); I10 Essential (primary) hypertension; I48.91 Unspecified atrial fibrillation; F31.9 Bipolar disorder, unspecified; F41.9 Anxiety disorder, unspecified
CPT/HCPCS: 99283

== ENCOUNTER → 2021-03-03 | Day surgery (SDC) | payer MEDICARE ==
[~2021-03-03] MED LIST changes: +ACETAMINOPHEN 1000 MG/100 ML 100 ML IV ONE; +ASPIRIN81 MG PO; +CEPHALEXIN500 MG PO; +CLINDAMYCIN HC300 MG PO; +DEXAMETHASONE SOD PHOS INJ 4 MG/ML VIAL ONE; +FENTANYL CITRATE/PF 100MCG/2 ML INJ ONE; +LIDOCAINE 1% W/EPINEPHRINE 20 ML VIAL ONE; +LIDOCAINE HCL 2% LOCAL INJ 5 ML SDV VIAL INJ ONE; +ONDANSETRON HCL INJ 2MG/ML 2ML 2 MG/ML VIAL ONE; +POVIDONE IODINE 0.05% 0.05 % ML PO ONE; +PROPOFOL IV EMULSION 10 MG/ML 20 ML VIAL ONE; +SEVOFLURANE INHAL SOLN 250 ML PEN BTL ONE
[2021-03-03 12:26] LABS: BASOPHILS % 0.4 % (0.0-1.0); EOSINOPHILS # (AUTO) 0.3 (0.0-0.4); EOSINOPHILS % 5.1 % (0.0-6.0); HEMATOCRIT 28.4 % (34.2-44.1); HEMOGLOBIN 8.5 g/dL (12.0-16.0); LYMPHOCYTES # (AUTO) 0.5 (1.0-3.2); LYMPHOCYTES % 9.5 % (18.0-39.1); MEAN CORPUSCULAR HEMOGLOBIN 27.1 pg (28-32); MEAN CORPUSCULAR HGB CONC 29.9 g/dL (31-35); MEAN CORPUSCULAR VOLUME 90.4 fL (81-99); MONOCYTES # (AUTO) 0.6 (0.2-0.8); NEUTROPHILS # (AUTO) 4.3 (2.1-6.9); NEUTROPHILS % 74.8 % (38.7-80.0); PLATELET COUNT 178 x10e3/uL (140-360); RED BLOOD COUNT 3.14 x10e6/uL (3.6-5.1); RED CELL DISTRIBUTION WIDTH 14.4 % (11.7-14.4)
[2021-03-03 12:43] LABS: ALBUMIN 3.2 g/dL (3.5-5.0); ALBUMIN/GLOBULIN RATIO 0.9 (0.8-2.0); ANION GAP 16.8 mmol/L (8-16); CALCIUM 9.5 mg/dL (8.4-10.2); CREATININE, SERUM 1.72 mg/dL (0.57-1.11); POTASSIUM 3.8 mmol/L (3.5-5.1)
[2021-03-03 15:00] VITALS: BP 147/85
== END | disposition home or self-care (01) ==
LOC: OR 10:11
PROVIDERS: ATTEND Surgery
DX: L02.01 Cutaneous abscess of face (principal); I10 Essential (primary) hypertension; F41.9 Anxiety disorder, unspecified; E03.9 Hypothyroidism, unspecified; D64.9 Anemia, unspecified; F32.9 Major depressive disorder, single episode, unspecified; Z01.810 Encounter for preprocedural cardiovascular examination; Z01.812 Encounter for preprocedural laboratory examination; Z88.2 Allergy status to sulfonamides
CPT/HCPCS: 20999; 36415; 80053; 85025; 87071; 87075; 87186; 87205; 93005; J0131; J1100; J2001; J2405; J2704; J3010

== ENCOUNTER 2023-02-01 18:50 | Inpatient (IN) | payer MEDICARE ==
[~2023-02-01] VITALS: Ht 160 cm; Wt 47.6 kg
[~2023-02-01 18:50] MED LIST changes: -ACETAMINOPHEN 1000 MG/100 ML 100 ML IV ONE; -DEXAMETHASONE SOD PHOS INJ 4 MG/ML VIAL ONE; +DONEPEZIL HCL10 MG PO; +ENTRESTO 24 MG1 EACH PO; -FENTANYL CITRATE/PF 100MCG/2 ML INJ ONE; -LIDOCAINE 1% W/EPINEPHRINE 20 ML VIAL ONE; -LIDOCAINE HCL 2% LOCAL INJ 5 ML SDV VIAL INJ ONE; +MIRTAZAPINE7.5 MG PO; +OLANZAPINE10 MG PO; -ONDANSETRON HCL INJ 2MG/ML 2ML 2 MG/ML VIAL ONE; +PAROXETINE HCL20 MG PO; -POVIDONE IODINE 0.05% 0.05 % ML PO ONE; -PROPOFOL IV EMULSION 10 MG/ML 20 ML VIAL ONE; -SEVOFLURANE INHAL SOLN 250 ML PEN BTL ONE
[2023-02-01] MEDS ORDERED: SODIUM CHLORIDE 0.9% 1000ML 1,000 ML IV STA ×2 (18:54)
[2023-02-01 19:17] LABS: BASOPHILS % 0.3 % (0.0-1.0); HEMATOCRIT 33.5 % (34.2-44.1); HEMOGLOBIN 10.8 g/dL (12.0-16.0); LYMPHOCYTES # (AUTO) 0.7 (1.0-3.2); LYMPHOCYTES % 9.6 % (18.0-39.1); MEAN CORPUSCULAR HEMOGLOBIN 29.9 pg (28-32); MEAN CORPUSCULAR HGB CONC 32.2 g/dL (31-35); MEAN CORPUSCULAR VOLUME 92.8 fL (81-99); MONOCYTES # (AUTO) 0.3 (0.2-0.8); NEUTROPHILS % 85.8 % (38.7-80.0); PLATELET COUNT 180 x10e3/uL (140-360); RED BLOOD COUNT 3.61 x10e6/uL (3.6-5.1); RED CELL DISTRIBUTION WIDTH 13.8 % (11.7-14.4)
[2023-02-01 19:34] LABS: ALBUMIN 3.3 g/dL (3.5-5.0); ALKALINE PHOSPHATASE 83 IU/L (40-150); ANION GAP 30.2 mmol/L (8-16); BLOOD UREA NITROGEN 30 mg/dL (7-26); BUN/CREATININE RATIO 9 (6-25); CALCIUM 9.1 mg/dL (8.4-10.2); CARBON DIOXIDE 15 mmol/L (22-29); CHLORIDE 101 mmol/L (98-107); CREATINE KINASE 39 IU/L (29-168); GLUCOSE 75 mg/dL (74-118); POTASSIUM 4.2 mmol/L (3.5-5.1); SODIUM 142 mmol/L (136-145)
[2023-02-01 19:35] LABS: ALANINE AMINOTRANSFERASE < 6 IU/L (0-55)
[2023-02-01] MEDS ORDERED: Morphine 4mg INJECTION 4 MG/ML INJ IV PRN (20:15)
[2023-02-01] MEDS ORDERED: ONDANSETRON HCL INJ 2MG/ML 2ML 2 MG/ML VIAL IV PRN (20:15)
[2023-02-01] MEDS: SODIUM CHLORIDE 0.9% 1000ML 1,000 ML IV SCH (21:13)
[2023-02-01 21:20] VITALS: PULSE 92; RESP 20; O2SAT 94
[2023-02-02] VITALS (7 sets, daily range): BP systolic 131–139; BP diastolic 67–69; PULSE 63–66; RESP 15–18; TEMP 98.3; O2SAT 98–99
[2023-02-02 03:31] LABS: CLARITY,URINE CLOUDY (CLEAR); COLOR,URINE YELLOW (YELLOW); LEUKOCYTE ESTERASE ,URINE 1+ (NEGATIVE)
[2023-02-02 03:32] LABS: KETONES,URINE >=160 (NEGATIVE); NITRITE,URINE NEGATIVE (NEGATIVE); PROTEIN,URINE DIPSTICK NEGATIVE (NEGATIVE); URINE UROBILINOGEN 0.2 mg/dL (0.2 - 1)
[2023-02-02 03:42] LABS: WBC,URINE (MAN) >50 /HPF (0-5)
[2023-02-02 03:43] LABS: BACTERIA,URINE MODERATE /HPF; EPITHELIAL CELLS,URINE FEW /LPF; TRANSITIONAL EPI CELLS,URINE FEW
[2023-02-02] MEDS: SODIUM CHLORIDE 0.9% 1000ML 1,000 ML IV SCH ×2 (05:33→12:15)
[2023-02-02 05:56] LABS: BASOPHILS % 0.2 % (0.0-1.0); EOSINOPHILS % 0.6 % (0.0-6.0); HEMATOCRIT 31.8 % (34.2-44.1); HEMOGLOBIN 10.1 g/dL (12.0-16.0); LYMPHOCYTES # (AUTO) 0.7 (1.0-3.2); LYMPHOCYTES % 10.9 % (18.0-39.1); MEAN CORPUSCULAR HEMOGLOBIN 29.9 pg (28-32); MEAN CORPUSCULAR HGB CONC 31.8 g/dL (31-35); MEAN CORPUSCULAR VOLUME 94.1 fL (81-99); MONOCYTES # (AUTO) 0.4 (0.2-0.8); MONOCYTES % 6.7 % (4.4-11.3); NEUTROPHILS # (AUTO) 5.1 (2.1-6.9); NEUTROPHILS % 81.3 % (38.7-80.0); PLATELET COUNT 137 x10e3/uL (140-360); RED BLOOD COUNT 3.38 x10e6/uL (3.6-5.1); RED CELL DISTRIBUTION WIDTH 13.7 % (11.7-14.4)
[2023-02-02 06:15] LABS: ALBUMIN 2.7 g/dL (3.5-5.0); ALKALINE PHOSPHATASE 69 IU/L (40-150); ANION GAP 22.1 mmol/L (8-16); BLOOD UREA NITROGEN 23 mg/dL (7-26); BUN/CREATININE RATIO 10 (6-25); CALCIUM 7.9 mg/dL (8.4-10.2); CARBON DIOXIDE 15 mmol/L (22-29); CHLORIDE 112 mmol/L (98-107); CREATININE, SERUM 2.39 mg/dL (0.57-1.11); GLUCOSE 65 mg/dL (74-118); POTASSIUM 3.1 mmol/L (3.5-5.1); SODIUM 146 mmol/L (136-145)
[2023-02-02 06:19] LABS: ALANINE AMINOTRANSFERASE < 6 IU/L (0-55)
[2023-02-02] MEDS ORDERED: DOCUSATE SODIUM 100 MG CAP PO PRN (15:45)
[2023-02-02] MEDS ORDERED: LIDOCAINE 4% PATCH TP PRN (15:45)
[2023-02-02] MEDS ORDERED: DIPHENHYDRAMINE HCL 25 MG CAP PO PRN (15:45)
[2023-02-02] MEDS ORDERED: HYDRALAZINE HCL 20 MG/ML VIAL IV PRN (15:45)
[2023-02-02] MEDS ORDERED: BENZONATATE 100 MG CAP PO PRN (15:45)
[2023-02-02] MEDS ORDERED: DEXTROSE 50% SYRINGE 50 ML IV PRN (15:45)
[2023-02-02] MEDS ORDERED: MELATONIN 5 MG TABLET PO PRN (15:45)
[2023-02-02] MEDS ORDERED: ACETAMINOPHEN 325 MG TAB PO PRN (15:45)
[2023-02-02] MEDS ORDERED: POTASSIUM CHLORIDE 20 MEQ TAB CR PO PRN (15:45)
[2023-02-02] MEDS ORDERED: SIMETHICONE 80 MG CHEW PO PRN (15:45)
[2023-02-02] MEDS ORDERED: ALBUTEROL/IPRATROPIUM 3 ML NEB NEB PRN (15:45)
[2023-02-02] MEDS ORDERED: ONDANSETRON HCL INJ 2MG/ML 2ML 2 MG/ML VIAL IV PRN (15:45)
[2023-02-02] MEDS: D5NS/KCL 20MEQ 1,000 ML IV SCH (17:09)
[2023-02-02] MEDS: ENOXAPARIN SOD INJ 40 MG/0.4 ML SYR SC SCH (17:10)
[2023-02-02] MEDS: MEGACE 400MG/ 10ML CUP PO SCH (17:10)
[2023-02-02] MEDS ORDERED: CLONAZEPAM 0.5 MG TAB PO PRN (21:45)
[2023-02-03] VITALS (10 sets, daily range): BP systolic 97–160; BP diastolic 61–80; PULSE 61–74; RESP 15–18; TEMP 97.4–98; O2SAT 95–100
[2023-02-03] MEDS: D5NS/KCL 20MEQ 1,000 ML IV SCH ×2 (05:30→14:30)
[2023-02-03] MEDS: LEVOTHYROXINE SODIUM 100 MCG TAB PO SCH (05:30)
[2023-02-03 07:46] LABS: BASOPHILS % 0.5 % (0.0-1.0); EOSINOPHILS # (AUTO) 0.2 (0.0-0.4); EOSINOPHILS % 4.6 % (0.0-6.0); HEMATOCRIT 31.8 % (34.2-44.1); HEMOGLOBIN 9.8 g/dL (12.0-16.0); LYMPHOCYTES # (AUTO) 0.9 (1.0-3.2); LYMPHOCYTES % 19.5 % (18.0-39.1); MEAN CORPUSCULAR HEMOGLOBIN 29.7 pg (28-32); MEAN CORPUSCULAR HGB CONC 30.8 g/dL (31-35); MEAN CORPUSCULAR VOLUME 96.4 fL (81-99); MONOCYTES # (AUTO) 0.3 (0.2-0.8); MONOCYTES % 6.4 % (4.4-11.3); NEUTROPHILS % 68.5 % (38.7-80.0); PLATELET COUNT 123 x10e3/uL (140-360); RED CELL DISTRIBUTION WIDTH 13.8 % (11.7-14.4)
[2023-02-03 08:32] LABS: ANION GAP 9.9 mmol/L (8-16); CALCIUM 7.7 mg/dL (8.4-10.2); CREATININE, SERUM 1.69 mg/dL (0.57-1.11); POTASSIUM 3.9 mmol/L (3.5-5.1)
[2023-02-03] MEDS: ATORVASTATIN 20 MG TAB PO SCH (08:58)
[2023-02-03] MEDS: MEGACE 400MG/ 10ML CUP PO SCH (08:58)
[2023-02-03] MEDS: SACUBITRIL49MG/VALSARTAN51MG 1 EACH TABLET PO SCH ×2 (08:58→16:35)
[2023-02-03] MEDS: ASPIRIN 81 MG CHEW TAB PO SCH (08:58)
[2023-02-03] MEDS: PAROXETINE HCL 20 MG TAB PO SCH (08:59)
[2023-02-03] MEDS: OLANZAPINE 5 MG TAB PO SCH (08:59)
[2023-02-03] MEDS: PANTOPRAZOLE SOD 40 MG TABEC PO SCH (08:59)
[2023-02-03] MEDS: SODIUM BICARBONATE 650 MG TAB PO SCH ×2 (08:59→16:35)
[2023-02-03] MEDS: ENOXAPARIN SOD INJ 40 MG/0.4 ML SYR SC SCH (16:35)
[2023-02-03] MEDS: MIRTAZAPINE 15 MG TAB PO SCH (20:34)
[2023-02-03] MEDS: DONEPEZIL HCL 5 MG TAB PO SCH (20:34)
[2023-02-04] VITALS (10 sets, daily range): BP systolic 100–139; BP diastolic 59–90; PULSE 71–88; RESP 15–18; TEMP 97–98.4; O2SAT 94–100
[2023-02-04] MEDS: D5NS/KCL 20MEQ 1,000 ML IV SCH ×3 (00:08→19:15)
[2023-02-04] MEDS: LEVOTHYROXINE SODIUM 100 MCG TAB PO SCH (05:20)
[2023-02-04] MEDS: SODIUM BICARBONATE 650 MG TAB PO SCH ×2 (09:15→17:20)
[2023-02-04] MEDS: PANTOPRAZOLE SOD 40 MG TABEC PO SCH (09:15)
[2023-02-04] MEDS: OLANZAPINE 5 MG TAB PO SCH (09:15)
[2023-02-04] MEDS: SACUBITRIL49MG/VALSARTAN51MG 1 EACH TABLET PO SCH ×2 (09:16→17:20)
[2023-02-04] MEDS: ASPIRIN 81 MG CHEW TAB PO SCH (09:16)
[2023-02-04] MEDS: ATORVASTATIN 20 MG TAB PO SCH (09:16)
[2023-02-04] MEDS: PAROXETINE HCL 20 MG TAB PO SCH (09:16)
[2023-02-04] MEDS: ENOXAPARIN SOD INJ 40 MG/0.4 ML SYR SC SCH (17:20)
[2023-02-04] MEDS: DONEPEZIL HCL 5 MG TAB PO SCH (21:10)
[2023-02-04] MEDS: MIRTAZAPINE 15 MG TAB PO SCH (21:11)
[2023-02-05] VITALS (8 sets, daily range): BP systolic 97–131; BP diastolic 53–76; PULSE 71–94; RESP 16–18; TEMP 97.7–98.8; O2SAT 97–100
[2023-02-05 05:49] LABS: BASOPHILS % 0.7 % (0.0-1.0); EOSINOPHILS # (AUTO) 0.2 (0.0-0.4); HEMATOCRIT 33.3 % (34.2-44.1); HEMOGLOBIN 10.3 g/dL (12.0-16.0); LYMPHOCYTES # (AUTO) 0.9 (1.0-3.2); LYMPHOCYTES % 19.8 % (18.0-39.1); MEAN CORPUSCULAR HEMOGLOBIN 29.9 pg (28-32); MEAN CORPUSCULAR HGB CONC 30.9 g/dL (31-35); MEAN CORPUSCULAR VOLUME 96.5 fL (81-99); MONOCYTES # (AUTO) 0.3 (0.2-0.8); MONOCYTES % 5.7 % (4.4-11.3); NEUTROPHILS % 68.6 % (38.7-80.0); PLATELET COUNT 119 x10e3/uL (140-360); RED BLOOD COUNT 3.45 x10e6/uL (3.6-5.1); RED CELL DISTRIBUTION WIDTH 14.1 % (11.7-14.4)
[2023-02-05] MEDS: LEVOTHYROXINE SODIUM 100 MCG TAB PO SCH (06:02)
[2023-02-05] MEDS: D5NS/KCL 20MEQ 1,000 ML IV SCH (06:07)
[2023-02-05 06:23] LABS: CALCIUM 7.4 mg/dL (8.4-10.2); CREATININE, SERUM 1.23 mg/dL (0.57-1.11)
[2023-02-05] MEDS: SACUBITRIL49MG/VALSARTAN51MG 1 EACH TABLET PO SCH ×2 (08:51→17:39)
[2023-02-05] MEDS: ASPIRIN 81 MG CHEW TAB PO SCH (08:51)
[2023-02-05] MEDS: PANTOPRAZOLE SOD 40 MG TABEC PO SCH (08:51)
[2023-02-05] MEDS: SODIUM BICARBONATE 650 MG TAB PO SCH ×2 (08:51→17:39)
[2023-02-05] MEDS: OLANZAPINE 5 MG TAB PO SCH (08:52)
[2023-02-05] MEDS: ATORVASTATIN 20 MG TAB PO SCH (08:52)
[2023-02-05] MEDS: PAROXETINE HCL 20 MG TAB PO SCH (08:52)
[2023-02-05] MEDS ORDERED: ONDANSETRON HCL 4 MG ORAL DISINTEGRATING TAB PO PRN (13:30)
[2023-02-05] MEDS: ENOXAPARIN SOD INJ 40 MG/0.4 ML SYR SC SCH (17:39)
[2023-02-05] MEDS: DONEPEZIL HCL 5 MG TAB PO SCH (21:09)
[2023-02-05] MEDS: MIRTAZAPINE 15 MG TAB PO SCH (21:09)
[2023-02-06] VITALS (9 sets, daily range): BP systolic 115–138; BP diastolic 60–81; PULSE 73–96; RESP 16–20; TEMP 97.3–98.7; O2SAT 95–100
[2023-02-06] MEDS: LEVOTHYROXINE SODIUM 100 MCG TAB PO SCH (05:27)
[2023-02-06] MEDS: SACUBITRIL49MG/VALSARTAN51MG 1 EACH TABLET PO SCH ×2 (09:09→16:54)
[2023-02-06] MEDS: SODIUM BICARBONATE 650 MG TAB PO SCH ×2 (09:10→16:54)
[2023-02-06] MEDS: OLANZAPINE 5 MG TAB PO SCH (09:10)
[2023-02-06] MEDS: ASPIRIN 81 MG CHEW TAB PO SCH (09:10)
[2023-02-06] MEDS: PANTOPRAZOLE SOD 40 MG TABEC PO SCH (09:10)
[2023-02-06] MEDS: PAROXETINE HCL 20 MG TAB PO SCH (09:11)
[2023-02-06] MEDS: ATORVASTATIN 20 MG TAB PO SCH (09:11)
[2023-02-06] MEDS: ENOXAPARIN SOD INJ 40 MG/0.4 ML SYR SC SCH (16:54)
[2023-02-06] MEDS: D5NS/KCL 20MEQ 1,000 ML IV SCH (21:01)
[2023-02-06] MEDS: MIRTAZAPINE 15 MG TAB PO SCH (21:01)
[2023-02-06] MEDS: DONEPEZIL HCL 5 MG TAB PO SCH (21:02)
[2023-02-07] VITALS (10 sets, daily range): BP systolic 104–137; BP diastolic 61–85; PULSE 83–94; RESP 15–19; TEMP 97.3–98.8; O2SAT 95–100
[2023-02-07] MEDS: LEVOTHYROXINE SODIUM 100 MCG TAB PO SCH (06:26)
[2023-02-07] MEDS: SODIUM BICARBONATE 650 MG TAB PO SCH ×2 (09:23→16:50)
[2023-02-07] MEDS: ASPIRIN 81 MG CHEW TAB PO SCH (09:23)
[2023-02-07] MEDS: SACUBITRIL49MG/VALSARTAN51MG 1 EACH TABLET PO SCH ×2 (09:23→16:50)
[2023-02-07] MEDS: OLANZAPINE 5 MG TAB PO SCH (09:24)
[2023-02-07] MEDS: ATORVASTATIN 20 MG TAB PO SCH (09:24)
[2023-02-07] MEDS: PANTOPRAZOLE SOD 40 MG TABEC PO SCH (09:24)
[2023-02-07] MEDS: PAROXETINE HCL 20 MG TAB PO SCH (09:24)
[2023-02-07] MEDS: D5NS/KCL 20MEQ 1,000 ML IV SCH ×2 (14:18→21:44)
[2023-02-07] MEDS: ENOXAPARIN SOD INJ 40 MG/0.4 ML SYR SC SCH (16:50)
[2023-02-07] MEDS: DONEPEZIL HCL 5 MG TAB PO SCH (21:37)
[2023-02-07] MEDS: MIRTAZAPINE 15 MG TAB PO SCH (21:38)
[2023-02-08 00:46] VITALS: BP 117/70; PULSE 91; RESP 16; TEMP 98.5; O2SAT 94
[2023-02-08 04:47] VITALS: BP 155/90; PULSE 58; RESP 22; TEMP 98; O2SAT 95
[2023-02-08] MEDS: LEVOTHYROXINE SODIUM 100 MCG TAB PO SCH ×2 (05:53→09:46)
[2023-02-08 06:32] VITALS: PULSE 96; RESP 20; O2SAT 96
[2023-02-08 08:51] VITALS: BP 123/94; PULSE 85; RESP 20; TEMP 98.3; O2SAT 99
[2023-02-08] MEDS: SACUBITRIL49MG/VALSARTAN51MG 1 EACH TABLET PO SCH (09:45)
[2023-02-08] MEDS: PAROXETINE HCL 20 MG TAB PO SCH (09:46)
[2023-02-08] MEDS: PANTOPRAZOLE SOD 40 MG TABEC PO SCH (09:46)
[2023-02-08] MEDS: OLANZAPINE 5 MG TAB PO SCH (09:46)
[2023-02-08] MEDS: SODIUM BICARBONATE 650 MG TAB PO SCH (09:46)
[2023-02-08] MEDS: ASPIRIN 81 MG CHEW TAB PO SCH (09:46)
[2023-02-08] MEDS: ATORVASTATIN 20 MG TAB PO SCH (09:46)
[2023-02-08 10:48] LABS: BASOPHILS % 0.2 % (0.0-1.0); EOSINOPHILS # (AUTO) 0.2 (0.0-0.4); EOSINOPHILS % 2.8 % (0.0-6.0); HEMATOCRIT 33.4 % (34.2-44.1); LYMPHOCYTES # (AUTO) 0.8 (1.0-3.2); LYMPHOCYTES % 12.3 % (18.0-39.1); MEAN CORPUSCULAR HEMOGLOBIN 29.7 pg (28-32); MEAN CORPUSCULAR HGB CONC 29.9 g/dL (31-35); MEAN CORPUSCULAR VOLUME 99.1 fL (81-99); MONOCYTES # (AUTO) 0.5 (0.2-0.8); MONOCYTES % 7.5 % (4.4-11.3); NEUTROPHILS % 76.9 % (38.7-80.0); PLATELET COUNT 95 x10e3/uL (140-360); RED BLOOD COUNT 3.37 x10e6/uL (3.6-5.1); RED CELL DISTRIBUTION WIDTH 14.5 % (11.7-14.4)
[2023-02-08 11:01] LABS: ANION GAP 13.1 mmol/L (8-16); CALCIUM 7.8 mg/dL (8.4-10.2); CREATININE, SERUM 1.04 mg/dL (0.57-1.11); POTASSIUM 4.1 mmol/L (3.5-5.1)
[2023-02-08 12:05] VITALS: BP 106/56; PULSE 81; RESP 18; TEMP 98.6; O2SAT 97
[2023-02-08] MEDS ORDERED: METOPROLOL TARTRATE 25 MG TAB PO SCH (12:30)
== END 2023-02-08 14:46 | DRG 871 ==
LOC: ER 18:55 → ERHOLD 20:10 → MED/SURG2 02-02 15:03
PROVIDERS: ADMIT Internal Medicine; ATTEND Internal Medicine
DX: A41.9 Sepsis, unspecified organism (principal); J69.0 Pneumonitis due to inhalation of food and vomit; N39.0 Urinary tract infection, site not specified; N17.9 Acute kidney failure, unspecified; E87.20 Acidosis, unspecified; E44.0 Moderate protein-calorie malnutrition; Z68.1 Body mass index [BMI] 19.9 or less, adult; R65.20 Severe sepsis without septic shock; F03.90 Unspecified dementia, unspecified severity, without behavioral disturbance, psychotic disturbance, mood disturbance, and anxiety; R62.7 Adult failure to thrive; E87.5 Hyperkalemia; E86.0 Dehydration; R53.1 Weakness; R53.81 Other malaise; R13.10 Dysphagia, unspecified; F31.9 Bipolar disorder, unspecified; F41.9 Anxiety disorder, unspecified; Z20.822 Contact with and (suspected) exposure to COVID-19; I48.91 Unspecified atrial fibrillation; E03.9 Hypothyroidism, unspecified; D64.9 Anemia, unspecified; I65.21 Occlusion and stenosis of right carotid artery; Z88.2 Allergy status to sulfonamides; Z79.890 Hormone replacement therapy; Z79.899 Other long term (current) drug therapy
CPT/HCPCS: 36415; 70450; 71045; 74230; 80048; 80053; 81001; 82140; 82550; 83605; 83690; 84484; 85025; 87040; 87086; 87186; 93005; 94799; 96360; 96361; 99284; J1650; J2543; J7030